=== PATIENT | female | born 1950 | race Caucasian/White ===

== ENCOUNTER 2019-08-26 11:00 | Inpatient (IN) | payer MEDICARE, BC ==
--- NOTE | 2019-08-26 12:18 | EDM.PDOC ---
ED HPI GENERAL MEDICAL PROBLEM - General Chief Complaint: General Stated Complaint: FEVER?? Time Seen by Provider: 08/26/19 11:30 Source of Information: Reports: Patient History Limitations: Reports: No Limitations - History of Present Illness INITIAL COMMENTS - FREE TEXT/NARRATIVE: 69-year-old female presents emergency room with complaints of fevers off and on over the last 2 days. She states that her tympanic cat temp was 103 earlier today and 102 yesterday. She has been taking Tylenol which seems to be helpful. She denies any chills, cough, shortness of breath, chest pain, abdominal pain, back pain and does feel tired. She is on her second round of chemotherapy for lung cancer. She called her oncologist and was recommended that she come to the ER to be checked out. Her current temp she is afebrile at 95.7. Lab workup including a chest x-ray are ordered Onset: Gradual Onset Date: 08/25/19 Duration: Day(s):, Waxing/Waning Location: Reports: Generalized Severity: Mild Improves with: Reports: Medication (Tylenol) Worsens with: Reports: None Associated Symptoms: Reports: Fever/Chills (Fever no chills), Malaise. 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: Reports: Acetaminophen - Related Data Allergies Allergy/AdvReac Type Severity Reaction Status Date / Time azithromycin Allergy Anaphylactic Verified 08/26/19 11:09 Shock Home Meds: Home Meds Anoro 1 puff INH DAILY 08/26/19 [History] Ondansetron [Zofran] 8 mg PO Q4H PRN 08/26/19 [History] Oxycod/Apap 1 tab PO Q4H PRN 08/26/19 [History] Prochlorperazine [Compazine] 10 mg PO Q6H PRN 08/26/19 [History] Social & Family History - Tobacco Use Smoking Status *Q: Former Smoker Used Tobacco, but Quit: Yes Month/Year Tobacco Last Used: quit 2 months ago - Caffeine Use Caffeine Use: Reports: None - Recreational Drug Use Recreational Drug Use: No - Living Situation & Occupation Living situation: Reports: Occupation: Employed ED ROS GENERAL - Review of Systems Review Of Systems: See Below Constitutional: Reports: Fever, Fatigue. Denies: Chills, Night Sweats, Diaphoresis HEENT: Reports: No Symptoms Respiratory: Denies: Shortness of Breath, Cough, Sputum Cardiovascular: Denies: Chest Pain, Blood Pressure Problem, Dyspnea on Exertion , Lightheadedness, Palpitations Endocrine: Reports: No Symptoms GI/Abdominal: Denies: Abdominal Pain, Nausea, Vomiting : Reports: No Symptoms Musculoskeletal: Reports: No Symptoms Skin: Reports: No Symptoms ED EXAM, GENERAL - Physical Exam Exam: See Below Exam Limited By: No Limitations General Appearance: Alert, WD/WN, No Apparent Distress Eye Exam: Bilateral Eye: EOMI, Other (Pupils are 2 mm and symmetric) Ears: Hearing Grossly Normal Nose: Normal Inspection Throat/Mouth: Normal Inspection, Normal Voice, No Airway Compromise Head: Atraumatic, Normocephalic Neck: Normal Inspection, Supple, Non-Tender, Full Range of Motion Respiratory/Chest: No Respiratory Distress, Lungs Clear, Normal Breath Sounds Cardiovascular: Regular Rate, Rhythm GI/Abdominal: Normal Bowel Sounds Back Exam: Normal Inspection Extremities: Normal Inspection, No Pedal Edema Neurological: Alert, Oriented, No Motor/Sensory Deficits Psychiatric: Normal Affect, Normal Mood Skin Exam: Warm, Dry, Intact Course - Vital Signs Last Recorded V/S: Last Vital Signs Temp 97.3 F 08/26/19 12:00 Pulse 102 H 08/26/19 11:04 Resp 20 08/26/19 11:04 BP 106/60 08/26/19 11:04 Pulse Ox 95 08/26/19 11:04 - Orders/Labs/Meds Orders: Active Orders 24 hr Category Date Time Status CULTURE BLOOD [BC] Stat Lab 08/26/19 12:54 Ordered CULTURE BLOOD [BC] Stat Lab 08/26/19 12:54 Ordered UA RFX [place] AND CULT IF INDIC [URIN] Stat Lab 08/26/19 12:02 Ordered Cefepime [Maxipime] 2 gm Med 08/26/19 14:00 Ordered Sodium Chloride 0.9% [Normal Saline] 50 ml IV Q8HR Vancomycin 1 gm Med 08/26/19 13:00 Ordered Sodium Chloride 0.9% [Normal Saline] 250 ml IV Q24H Blood Culture x2 Reflex Set [OM.PC] Stat Oth 08/26/19 12:54 Ordered Medication Orders Cefepime HCl 2 gm/ Sodium (Chloride) 50 mls @ 100 mls/hr IV Q8HR [facility]I Vancomycin HCl 1 gm/ Sodium (Chloride) 250 mls @ 167 mls/hr IV Q24H [facility] Labs: Laboratory Tests 08/26/19 08/26/19 08/26/19 Range/Units 11:30 11:55 11:55 WBC 1.14 L* (5.00-10.00) 10^3/uL RBC 3.17 L (3.80-5.50) 10^6/uL Hgb 9.3 L (12.0-16.0) g/dL Hct 27.5 L (37.0-47.0) % MCV 86.8 (82.0-92.0) fL MCH 29.3 (27.0-31.0) pg MCHC 33.8 (32.0-36.0) g/dL RDW 15.1 H (11.5-14.5) % Plt Count 91 L (150-400) 10^3/uL MPV 9.4 (7.4-10.4) fL Immature Gran % (Auto) 0.0 (0.0-5.0) % Neut % (Auto) 19.3 L (50.0-70.0) % Lymph % (Auto) 64.0 H (20.0-40.0) % [place] % (Auto) 14.9 H (2.0-8.0) % Eos % (Auto) 0.9 L (1.0-3.0) % Baso % (Auto) 0.9 (0.0-1.0) % Neut # (Auto) 0.22 L (2.50-7.00) 10^3/uL Lymph # (Auto) 0.73 L (1.00-4.00) 10^3/uL [place] # (Auto) 0.17 (0.10-0.80) 10^3/uL Eos # (Auto) 0.01 L (0.10-0.30) 10^3/uL Baso # (Auto) 0.01 (0.00-0.10) 10^3/uL Immature Gran # (Auto) 0.00 (0.00-0.50) 10^3/uL Sodium 145 (136-145) mmol/L Potassium 3.7 (3.3-5.3) mmol/L Chloride 103 (98-115) mmol/L Carbon Dioxide 25.5 (21.0-32.0) mmol/L Anion Gap 20.2 H (5-15) mmol/L BUN 19 (6-25) mg/dL Creatinine 0.83 (0.51-1.17) mg/dL Est Cr Clr Drug Dosing 54.41 mL/min Estimated GFR (MDRD) > 60 mL/min Glucose 124 H (75 - 99) mg/dL Calcium 8.9 (8.7-10.3) mg/dL Total Bilirubin 0.3 (0.2-1.0) mg/dL AST 37 (15-37) U/L ALT 48 (12-78) U/L Alkaline Phosphatase 220 H (46-116) IU/L Total Protein 7.8 (6.4-8.2) g/dL Albumin 3.13 (3.00-4.80) g/dL Specimen Type Urincc Urine Color Yellow (YELLOW) Urine Appearance Slightly cloudy H (CLEAR) Urine pH 5.5 (5.0-9.0) Ur Specific [place] >= 1.030 (1.005-1.030) Urine Protein 30 H (NEGATIVE) mg/dL Urine Glucose (UA) Negative (NEGATIVE) mg/dL Urine Ketones Negative (NEGATIVE) mg/dL Urine Occult Blood Negative (NEGATIVE) Urine Nitrite Negative (NEGATIVE) Urine Bilirubin Small H (NEGATIVE) Urine Urobilinogen 1.0 (0.2-1.0) E.U./dL Ur Leukocyte Esterase Negative (NEGATIVE) Urine RBC 0-5 (0-5) /HPF Urine WBC 0-5 (0-5) /HPF Ur Epithelial Cells Many H /LPF Urine Bacteria Few (NONE TO FEW) /HPF Meds: Medications Generic Name Dose Route Start Last Admin Trade Name Freq PRN Reason Stop Dose Admin Cefepime HCl 2 gm/ Sodium 50 mls @ 100 mls/hr 08/26/19 14:00 Chloride IV Q8HR CAMI Vancomycin HCl 1 gm/ Sodium 250 mls @ 167 mls/hr 08/26/19 13:00 Chloride IV Q24H [facility]I - Re-Assessments/Exams Free Text/Narrative Re-Assessment/Exam: 08/26/19 12:46 Patient's white count is 1.14 Departure - Departure Time of Disposition: 13:06 Disposition: Admitted As Inpatient 68 Condition: Fair Clinical Impression: Leukopenia due to antineoplastic chemotherapy - Discharge Information Referrals: Adriana Avina MD [Primary Care Provider] - Forms: ED Department Discharge Sepsis Event Note - Evaluation Sepsis Screening Result: No Definite Risk - Focused Exam Vital Signs: Vital Signs Temp Temp Pulse Resp BP Pulse Ox 08/26/19 12:00 97.3 F 08/26/19 11:04 95.1 F L 102 H 20 106/60 95 Date Exam was Performed: 08/26/19 Time Exam was Performed: 13:06 - My Orders Last 24 Hours: My Active Orders 08/26/19 12:02 UA RFX [place] AND CULT IF INDIC [URIN] Stat 08/26/19 12:54 CULTURE BLOOD [BC] Stat CULTURE BLOOD [BC] Stat Blood Culture x2 Reflex Set [OM.PC] Stat 08/26/19 13:00 Vancomycin 1 gm Sodium Chloride 0.9% [Normal Saline] 250 ml IV Q24H 08/26/19 14:00 Cefepime [Maxipime] 2 gm Sodium Chloride 0.9% [Normal Saline] 50 ml IV Q8HR - Assessment/Plan Last 24 Hours: My Active Orders 08/26/19 12:02 UA RFX [place] AND CULT IF INDIC [URIN] Stat 08/26/19 12:54 CULTURE BLOOD [BC] Stat CULTURE BLOOD [BC] Stat Blood Culture x2 Reflex Set [OM.PC] Stat 08/26/19 13:00 Vancomycin 1 gm Sodium Chloride 0.9% [Normal Saline] 250 ml IV Q24H 08/26/19 14:00 Cefepime [Maxipime] 2 gm Sodium Chloride 0.9% [Normal Saline] 50 ml IV Q8HR Assessment:: Leukopenia secondary to chemotherapy Fever Liver cancer with lung metastases Plan: 1. Vancomycin 1 g every 24 hours 2. Cefepime 2 g every 8 hours 3. Blood cultures 2 4. Rapid Covid test 5. Admit to [facility].
[2019-08-26 12:22] LABS: ANION GAP 20.2 mmol/L (5-15); CHLORIDE,CL 103 mmol/L (98-115); SODIUM,NA 145 mmol/L (136-145)
--- NOTE | 2019-08-26 12:29 | CR ---
[id number] RAD/RAD Chest PA or AP 1V EXAM: RAD Chest PA or AP 1V INDICATION: FEVER, LUNG CANCER. COMPARISON: May 2007. DISCUSSION: Right chest wall IJ approach port catheter in place. Tip in the inferior SVC. Cardiomediastinal silhouette is normal in size and contour. No infiltrate, effusion, pneumothorax, or edema. IMPRESSION: Negative for pneumonia or other acute findings in the chest. Narinder Salinas MD 08/26/19 [id number] Thank you for allowing us to participate in the care of your patient.
[2019-08-26] MEDS ORDERED: Lidocaine/Prilocaine 2.5-2.5% Crm 5 GM Tube TOP ONE (13:20)
[2019-08-26] MEDS: Cefepime 2 GM in Sodium Chloride 0.9% 50 ML IV SCH ×2 (14:11→21:28)
--- NOTE | 2019-08-26 15:23 | PCM.HP.2 ---
H&P History of Present Illness - General Date of Service: 08/26/19 Admit Problem/Dx: Admission Diagnosis/Problem Admission Diagnosis/Problem Leukopenia Source of Information: Patient, Provider, RN History Limitations: Reports: No Limitations Lower Back Pain Score (Numeric/FACES): 5 - Related Data Allergies/Adverse Reactions: Allergies Allergy/AdvReac Type Severity Reaction Status Date / Time azithromycin Allergy Anaphylactic Verified 08/26/19 11:09 Shock Home Medications: Home Meds Anoro Ellipta 62.5mcg/25 Mcg 1 puff INH DAILY 08/26/19 [History] Ondansetron [Zofran] 8 mg PO Q4H PRN 08/26/19 [History] Prochlorperazine [Compazine] 10 mg PO Q6H PRN 08/26/19 [History] Sennosides/Docusate Sodium [Senna-Docusate Sodium Tablet] 1 tab PO DAILY [History] oxyCODONE HCl/Acetaminophen [Oxycodone-Acetaminophen 5-325] 1 tab PO Q4H PRN 02/04 [History] polyethylene glycoL 3350 [MiraLAX] 1 packet PO DAILY PRN 08/26/19 [History] Past Medical History Cardiovascular History: Reports: None Respiratory History: Reports: COPD Other Gastrointestinal History: liver metastasis Genitourinary History: Reports: None Musculoskeletal History: Reports: None Neurological History: Reports: None Psychiatric History: Reports: Depression Endocrine/Metabolic History: Reports: None Immunologic History: Reports: Immunosuppression (chemotherapy) Oncologic (Cancer) History: Reports: Cervix (s/p hysterectomy), Lung (SCLC), Metastatic - Past Surgical History Female Surgical History: Reports: Hysterectomy Social & Family History - Family History Respiratory: Reports: Other (See Below) Other Respiratory Family Hisory: Father with lung cancer Oncologic: Reports: Brain, Lung Other Oncologic Family History: brain and lung cancer father - Tobacco Use Smoking Status *Q: Former Smoker Used Tobacco, but Quit: Yes Month/Year Tobacco Last Used: quit 2 months ago - Caffeine Use Caffeine Use: Reports: None - Recreational Drug Use Recreational Drug Use: No - Living Situation & Occupation Living situation: Reports: Occupation: Employed H&P Review of Systems - Review of Systems: Review Of Systems: See Below General: Reports: Chills, Weakness, Decreased Appetite. Denies: Fever, Fatigue , Night Sweats HEENT: Denies: Headaches, Rhinitis, Sinus Congestion, Sore Throat Pulmonary: Denies: Shortness of Breath, Wheezing, Cough, Sputum Cardiovascular: Reports: No Symptoms Gastrointestinal: Reports: Constipation (secondary to opioid therapy. last BM yesterday). Denies: Diarrhea, Nausea, Vomiting Genitourinary: Denies: Dysuria, Frequency, Burning, Pain, Urgency, Incontinence , Hematuria Musculoskeletal: Reports: No Symptoms Skin: Reports: Pallor Psychiatric: Reports: No Symptoms Neurological: Reports: No Symptoms Hematologic/Lymphatic: Denies: Easy Bleeding, Easy Bruising Exam - Exam Exam: See Below - Vital Signs Vital Signs: Last Vital Signs Temp 97.3 F 08/26/19 12:00 Pulse 102 H 08/26/19 11:04 Resp 20 08/26/19 11:04 BP 106/60 08/26/19 11:04 Pulse Ox 95 08/26/19 11:04 Weight: 160 lb - Exam Quality Assessment: Central Line/PICC, DVT Prophylaxis. No: Supplemental Oxygen , Urinary Catheter General: Alert, Oriented HEENT: Conjunctiva Clear Neck: Supple, Trachea Midline. No: JVD Lungs: Clear to Auscultation, Normal Respiratory Effort Cardiovascular: Regular Rate, Regular Rhythm GI/Abdominal Exam: Normal Bowel Sounds, Soft, Other (mild upper abdominal pain with palpation per baseline. ) (Female) Exam: Deferred Extremities: Non-Tender, No Pedal Edema, Pallor Skin: Warm, Dry, Intact Neuro Extensive - Mental Status: Alert, Normal Mood/Affect, Normal Cognition, Memory Intact Psychiatric: Alert, Normal Affect, Normal Mood - Patient Data Lab Results Last 24 hrs: Laboratory Results - last 24 hr 08/26/19 08/26/19 08/26/19 Range/Units 11:30 11:55 11:55 WBC 1.14 L* (5.00-10.00) 10^3/uL RBC 3.17 L (3.80-5.50) 10^6/uL Hgb 9.3 L (12.0-16.0) g/dL Hct 27.5 L (37.0-47.0) % MCV 86.8 (82.0-92.0) fL MCH 29.3 (27.0-31.0) pg MCHC 33.8 (32.0-36.0) g/dL RDW 15.1 H (11.5-14.5) % Plt Count 91 L (150-400) 10^3/uL MPV 9.4 (7.4-10.4) fL Immature Gran % (Auto) 0.0 (0.0-5.0) % Neut % (Auto) 19.3 L (50.0-70.0) % Lymph % (Auto) 64.0 H (20.0-40.0) % [place] % (Auto) 14.9 H (2.0-8.0) % Eos % (Auto) 0.9 L (1.0-3.0) % Baso % (Auto) 0.9 (0.0-1.0) % Neut # (Auto) 0.22 L (2.50-7.00) 10^3/uL Lymph # (Auto) 0.73 L (1.00-4.00) 10^3/uL [place] # (Auto) 0.17 (0.10-0.80) 10^3/uL Eos # (Auto) 0.01 L (0.10-0.30) 10^3/uL Baso # (Auto) 0.01 (0.00-0.10) 10^3/uL Immature Gran # (Auto) 0.00 (0.00-0.50) 10^3/uL Sodium 145 (136-145) mmol/L Potassium 3.7 (3.3-5.3) mmol/L Chloride 103 (98-115) mmol/L Carbon Dioxide 25.5 (21.0-32.0) mmol/L Anion Gap 20.2 H (5-15) mmol/L BUN 19 (6-25) mg/dL Creatinine 0.83 (0.51-1.17) mg/dL Est Cr Clr Drug Dosing 54.41 mL/min Estimated GFR (MDRD) > 60 mL/min Glucose 124 H (75 - 99) mg/dL Uric Acid (2.6-7.2) mg/dL Calcium 8.9 (8.7-10.3) mg/dL Total Bilirubin 0.3 (0.2-1.0) mg/dL AST 37 (15-37) U/L ALT 48 (12-78) U/L Alkaline Phosphatase 220 H (46-116) IU/L Total Protein 7.8 (6.4-8.2) g/dL Albumin 3.13 (3.00-4.80) g/dL Specimen Type Urincc Urine Color Yellow (YELLOW) Urine Appearance Slightly cloudy H (CLEAR) Urine pH 5.5 (5.0-9.0) Ur Specific [place] >= 1.030 (1.005-1.030) Urine Protein 30 H (NEGATIVE) mg/dL Urine Glucose (UA) Negative (NEGATIVE) mg/dL Urine Ketones Negative (NEGATIVE) mg/dL Urine Occult Blood Negative (NEGATIVE) Urine Nitrite Negative (NEGATIVE) Urine Bilirubin Small H (NEGATIVE) Urine Urobilinogen 1.0 (0.2-1.0) E.U./dL Ur Leukocyte Esterase Negative (NEGATIVE) Urine RBC 0-5 (0-5) /HPF Urine WBC 0-5 (0-5) /HPF Ur Epithelial Cells Many H /LPF Urine Bacteria Few (NONE TO FEW) /HPF SARS-CoV-2 RNA (RT-PCR) (NEGATIVE) 08/26/19 08/26/19 Range/Units 11:55 13:30 WBC (5.00-10.00) 10^3/uL RBC (3.80-5.50) 10^6/uL Hgb (12.0-16.0) g/dL Hct (37.0-47.0) % MCV (82.0-92.0) fL MCH (27.0-31.0) pg MCHC (32.0-36.0) g/dL RDW (11.5-14.5) % Plt Count (150-400) 10^3/uL MPV (7.4-10.4) fL Immature Gran % (Auto) (0.0-5.0) % Neut % (Auto) (50.0-70.0) % Lymph % (Auto) (20.0-40.0) % [place] % (Auto) (2.0-8.0) % Eos % (Auto) (1.0-3.0) % Baso % (Auto) (0.0-1.0) % Neut # (Auto) (2.50-7.00) 10^3/uL Lymph # (Auto) (1.00-4.00) 10^3/uL [place] # (Auto) (0.10-0.80) 10^3/uL Eos # (Auto) (0.10-0.30) 10^3/uL Baso # (Auto) (0.00-0.10) 10^3/uL Immature Gran # (Auto) (0.00-0.50) 10^3/uL Sodium (136-145) mmol/L Potassium (3.3-5.3) mmol/L Chloride (98-115) mmol/L Carbon Dioxide (21.0-32.0) mmol/L Anion Gap (5-15) mmol/L BUN (6-25) mg/dL Creatinine (0.51-1.17) mg/dL Est Cr Clr Drug Dosing mL/min Estimated GFR (MDRD) mL/min Glucose (75 - 99) mg/dL Uric Acid 6.0 (2.6-7.2) mg/dL Calcium (8.7-10.3) mg/dL Total Bilirubin (0.2-1.0) mg/dL AST (15-37) U/L ALT (12-78) U/L Alkaline Phosphatase (46-116) IU/L Total Protein (6.4-8.2) g/dL Albumin (3.00-4.80) g/dL Specimen Type Urine Color (YELLOW) Urine Appearance (CLEAR) Urine pH (5.0-9.0) Ur Specific [place] (1.005-1.030) Urine Protein (NEGATIVE) mg/dL Urine Glucose (UA) (NEGATIVE) mg/dL Urine Ketones (NEGATIVE) mg/dL Urine Occult Blood (NEGATIVE) Urine Nitrite (NEGATIVE) Urine Bilirubin (NEGATIVE) Urine Urobilinogen (0.2-1.0) E.U./dL Ur Leukocyte Esterase (NEGATIVE) Urine RBC (0-5) /HPF Urine WBC (0-5) /HPF Ur Epithelial Cells /LPF Urine Bacteria (NONE TO FEW) /HPF SARS-CoV-2 RNA (RT-PCR) Negative (NEGATIVE) Result Diagrams: 08/28/19 08:27 08/28/19 08:27 Sepsis Event Note - Evaluation Sepsis Screening Result: No Definite Risk - Focused Exam Vital Signs: Vital Signs Temp Temp Pulse Resp BP Pulse Ox 08/26/19 12:00 97.3 F 08/26/19 11:04 95.1 F L 102 H 20 106/60 95 Date Exam was Performed: 08/28/19 Time Exam was Performed: 18:48 *Q Meaningful Use (ADM) - VTE *Q VTE Pharmacological Contraindications *Q: Thrombocytopenia - VTE Risk Assess *Q Each Risk Factor Represents 1 Point: Obesity ( BMI > 25 kg/m2), Abnormal Pulmonary Function (COPD) Total Score 1 Point Risk Factors: 2 Each Risk Factor Represents 2 Points: Age 60 - 74 Years, Central venous access, Malignancy (present or previous) Total Score 2 Point Risk Factors: 6 Each Risk Factor Represents 3 Points: None Total Score 3 Point Risk Factors: 0 Each Risk Factor Represents 5 Points: None Total Score 5 Point Risk Factors: 0 Venous Thromboembolism Risk Factor Score *Q: 8 Problem List Initiated/Reviewed/Updated: Yes Orders Last 24hrs: Active Orders 24 hr Category Date Time Status Patient Status [ADT] Routine ADT 08/26/19 13:20 Active Height and Weight [RC] UPON Care 08/26/19 13:20 Active Intake and Output [RC] QSHIFT Care 08/26/19 13:23 Active Pulse Oximetry [RC] PRN Care 08/26/19 13:23 Active Vital Signs [RC] Q4H Care 08/26/19 13:20 Active Regular Diet [DIET] Diet 08/26/19 Dinner Active CULTURE BLOOD [BC] Stat Lab 08/26/19 12:54 Ordered CULTURE BLOOD [BC] Stat Lab 08/26/19 12:54 Ordered LD [REF] Routine Lab 08/26/19 11:55 Received Acetaminophen [Tylenol] Med 08/26/19 13:20 Active 650 mg PO Q4H PRN Cefepime [Maxipime] 2 gm Med 08/26/19 14:00 Active Sodium Chloride 0.9% [Normal Saline] 50 ml IV Q8HR Vancomycin 1 gm Med 08/26/19 13:00 Active Sodium Chloride 0.9% [Normal Saline] 250 ml IV Q24H Blood Culture x2 Reflex Set [OM.PC] Stat Oth 08/26/19 12:54 Ordered Medication Orders Acetaminophen (Tylenol) 650 mg PO Q4H PRN PRN Reason: analgesia/fever Cefepime HCl 2 gm/ Sodium (Chloride) 50 mls @ 100 mls/hr IV Q8HR [facility]I Vancomycin HCl 1 gm/ Sodium (Chloride) 250 mls @ 167 mls/hr IV Q24H [facility] Assessment/Plan Comment:: This is a 69 year old female with a history notable for recently diagnosed 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 Patient presented to the ED at the recommendation of her oncologist due to concerns of fevers on and off for the last 2 days with at home readings of 103 today and 102 yesterday. Patient states she had been feeling more weak at home. She denies any cough, SOB, chest pain, abdominal pain, nausea, vomiting, or diarrhea. she denies any urinary symptoms. Patient had called oncology at [facility] who recommended emergent ER evaluation at the closest ED setting d/t risk of febrile neutropenia. She has been taking tylenol for fevers with benefit. Patient was recently treated for pneumonia on 08/15/19 with levaquin 500mg PO daily x 1 week. ED course: - Vitals: [id number], BP-106/60, O2 95% - Chest x-ray- Negative for pneumonia or other acute finding. Right chest wall IJ approach port catheter in place, tip in the inferior SVC. - CBC- WBC 1.14, absolute neutrophil 0.22, plt count 91, Hgb 9.3. - CMP- normal liver, renal and electrolytes, alk phos 220 - Urinalysis: Negative (negative nitrites, leukocytes, 0-5 RBC, 0-5 WBC, few bacteria) - COVID-19- Negative - Uric Acid- 6.0 Oncology was consulted with suggestive plan: -covid19 testing, chest xray -cbc, cmp, ldh, uric acid, blood culture (+/-urine culture) -urgent administration of iv antibiotics after blood cultures are taken ( cefepime and if she has a central access vancomycin) -can be admitted locally for continuation of iv antibiotics (or can transfer to [place] if needed) -additional work up as deemed necessary Hospitalization problems: # Fever- Neutropenia. no clear infectious etiology at present with chest x-ray negative. UA negative. COVID-19 negative. blood cultures x 2 done and pending. Cefepime 2g IV Q8H and Vancomycin initiated per oncology recommendation. Less likely atezolizumab related but if no improvement and work up is negative, can re-evaluate for medication related adverse events. LDH done per oncology and pending. will add Lactic acid. # Leukopenia, Neutropenia- on chemotherapy. Last WBC on 08/14/19 prior to latest round of chemo was 5.5. ANC 3.6. WBC today 1.14. with ANC 0.22. Neutropenic precautions. Close lab monitoring. # SCLC with metastasis to the liver- Recently diagnosed July 2019. Current tx regimen:Atezolizumab + CARBOplatin + Etoposide (SCLC); day 3 of cycle 2 was on 08/16/2019. Followed by Dr. Whitaker oncology . Continue on Percocet PRN for pain Chronic conditions: # COPD- continue anoro ellipta # Tobacco dependence- 2 months cigarette free. NRT at home with patches. patient declines the need for Nicotine patch therapy. Will continue to monitor. # Constipation- Miralax PRN, Senna-Colace # Depression- not currently managed pharmacologically. managed by her PCP. recent referral to [facility]. # history of cervical cancer- S/P hysterectomy 1997. Hospitalization details: # FEN: Regular diet. Encourage PO intake # PPX: Increased DVT risk- SCDs and encourage ambulation. Lovenox contraindication d/t Platelet count 91,000. # Code status: Code status discussed with patient with daughter on the phone. patient desires to be a Modified code: CPR but NO INTUBATION. # Disposition: Admit to inpatient status. Anticipate eventual discharge to home. close patient monitoring with low threshold for oncology consult and/or transfer if any change in patient status.
[2019-08-26] MEDS ORDERED: Polyethylene Glycol 3350 Powder 17 GM Packet PO PRN (18:00)
[2019-08-26] MEDS ORDERED: Prochlorperazine 5 MG Tab PO PRN (18:00)
[2019-08-26] MEDS ORDERED: Ondansetron 4 MG Tab.DIS PO PRN (18:00)
[2019-08-26] MEDS: Acetaminophen 325 MG Tab PO PRN (18:36)
[2019-08-26] MEDS: Sodium Chloride 0.9% 20 ML SDV FLUSH PRN ×3 (20:00→22:05)
[2019-08-27] MEDS: Sodium Chloride 0.9% 20 ML SDV FLUSH PRN ×4 (06:00→15:34)
[2019-08-27] MEDS: Sodium Chloride 0.9% 250 ML IV SCH (06:01)
[2019-08-27] MEDS: Cefepime 2 GM in Sodium Chloride 0.9% 50 ML IV SCH ×4 (06:04→21:31)
[2019-08-27 08:09] LABS: ANION GAP 14.3 mmol/L (5-15); CHLORIDE,CL 106 mmol/L (98-115); SODIUM,NA 142 mmol/L (136-145)
[2019-08-27] MEDS ORDERED: Indacaterol/Glycopyrrolate 1 EA Cap.W.Dev Kit of 6 IH SCH (09:00)
[2019-08-27] MEDS: ANORO ELLIPTA INH SCH (09:28)
--- NOTE | 2019-08-27 10:32 | PCM.PN ---
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 No overnight concerns. Afebrile overnight. Denies chest pain, shortness of breath or pain. - Review of Systems General: Denies: Fever, Weakness, Chills HEENT: Denies: Headaches, Sinus Congestion, Sore Throat Pulmonary: Reports: Cough (non productive). Denies: Shortness of Breath, Sputum Cardiovascular: Denies: Chest Pain, Palpitations, Edema Gastrointestinal: Denies: Abdominal Pain, Constipation, Diarrhea, Nausea Genitourinary: Denies: Dysuria Skin: Denies: Rash Neurological: Denies: Headache, Difficulty Walking, Weakness Psychiatric: Denies: Confusion - Patient Data Vitals - Most Recent: Last Vital Signs Temp 37.4 C 08/27/19 06:28 Pulse 97 08/27/19 06:28 Resp 18 08/27/19 06:28 BP 116/63 08/27/19 06:28 Pulse Ox 94 L 08/27/19 06:28 Weight - Most Recent: 72.575 kg I&O - Last 24 Hours: Intake & Output 08/26/19 08/27/19 08/27/19 22:59 06:59 14:59 Intake Total 526 120 Output Total 250 400 Balance 276 -280 Lab Results Last 24 Hours: Laboratory Results - last 24 hr 08/26/19 08/26/19 08/26/19 Range/Units 11:30 11:55 11:55 WBC 1.14 L* (5.00-10.00) 10^3/uL RBC 3.17 L (3.80-5.50) 10^6/uL Hgb 9.3 L (12.0-16.0) g/dL Hct 27.5 L (37.0-47.0) % MCV 86.8 (82.0-92.0) fL MCH 29.3 (27.0-31.0) pg MCHC 33.8 (32.0-36.0) g/dL RDW 15.1 H (11.5-14.5) % Plt Count 91 L (150-400) 10^3/uL MPV 9.4 (7.4-10.4) fL Immature Gran % (Auto) 0.0 (0.0-5.0) % Neut % (Auto) 19.3 L (50.0-70.0) % Lymph % (Auto) 64.0 H (20.0-40.0) % [place] % (Auto) 14.9 H (2.0-8.0) % Eos % (Auto) 0.9 L (1.0-3.0) % Baso % (Auto) 0.9 (0.0-1.0) % Neut # (Auto) 0.22 L (2.50-7.00) 10^3/uL Lymph # (Auto) 0.73 L (1.00-4.00) 10^3/uL [place] # (Auto) 0.17 (0.10-0.80) 10^3/uL Eos # (Auto) 0.01 L (0.10-0.30) 10^3/uL Baso # (Auto) 0.01 (0.00-0.10) 10^3/uL Immature Gran # (Auto) 0.00 (0.00-0.50) 10^3/uL Sodium 145 (136-145) mmol/L Potassium 3.7 (3.3-5.3) mmol/L Chloride 103 (98-115) mmol/L Carbon Dioxide 25.5 (21.0-32.0) mmol/L Anion Gap 20.2 H (5-15) mmol/L BUN 19 (6-25) mg/dL Creatinine 0.83 (0.51-1.17) mg/dL Est Cr Clr Drug Dosing 54.41 mL/min Estimated GFR (MDRD) > 60 mL/min Glucose 124 H (75 - 99) mg/dL Lactic Acid (0.4-2.0) mmol/L Uric Acid (2.6-7.2) mg/dL Calcium 8.9 (8.7-10.3) mg/dL Total Bilirubin 0.3 (0.2-1.0) mg/dL AST 37 (15-37) U/L ALT 48 (12-78) U/L Alkaline Phosphatase 220 H (46-116) IU/L Total Protein 7.8 (6.4-8.2) g/dL Albumin 3.13 (3.00-4.80) g/dL Specimen Type Urincc Urine Color Yellow (YELLOW) Urine Appearance Slightly cloudy H (CLEAR) Urine pH 5.5 (5.0-9.0) Ur Specific [place] >= 1.030 (1.005-1.030) Urine Protein 30 H (NEGATIVE) mg/dL Urine Glucose (UA) Negative (NEGATIVE) mg/dL Urine Ketones Negative (NEGATIVE) mg/dL Urine Occult Blood Negative (NEGATIVE) Urine Nitrite Negative (NEGATIVE) Urine Bilirubin Small H (NEGATIVE) Urine Urobilinogen 1.0 (0.2-1.0) E.U./dL Ur Leukocyte Esterase Negative (NEGATIVE) Urine RBC 0-5 (0-5) /HPF Urine WBC 0-5 (0-5) /HPF Ur Epithelial Cells Many H /LPF Urine Bacteria Few (NONE TO FEW) /HPF SARS-CoV-2 RNA (RT-PCR) (NEGATIVE) 08/26/19 08/26/19 08/27/19 Range/Units 11:55 13:30 07:35 WBC (5.00-10.00) 10^3/uL RBC (3.80-5.50) 10^6/uL Hgb (12.0-16.0) g/dL Hct (37.0-47.0) % MCV (82.0-92.0) fL MCH (27.0-31.0) pg MCHC (32.0-36.0) g/dL RDW (11.5-14.5) % Plt Count (150-400) 10^3/uL MPV (7.4-10.4) fL Immature Gran % (Auto) (0.0-5.0) % Neut % (Auto) (50.0-70.0) % Lymph % (Auto) (20.0-40.0) % [place] % (Auto) (2.0-8.0) % Eos % (Auto) (1.0-3.0) % Baso % (Auto) (0.0-1.0) % Neut # (Auto) (2.50-7.00) 10^3/uL Lymph # (Auto) (1.00-4.00) 10^3/uL [place] # (Auto) (0.10-0.80) 10^3/uL Eos # (Auto) (0.10-0.30) 10^3/uL Baso # (Auto) (0.00-0.10) 10^3/uL Immature Gran # (Auto) (0.00-0.50) 10^3/uL Sodium (136-145) mmol/L Potassium (3.3-5.3) mmol/L Chloride (98-115) mmol/L Carbon Dioxide (21.0-32.0) mmol/L Anion Gap (5-15) mmol/L BUN (6-25) mg/dL Creatinine (0.51-1.17) mg/dL Est Cr Clr Drug Dosing mL/min Estimated GFR (MDRD) mL/min Glucose (75 - 99) mg/dL Lactic Acid 0.9 (0.4-2.0) mmol/L Uric Acid 6.0 (2.6-7.2) mg/dL Calcium (8.7-10.3) mg/dL Total Bilirubin (0.2-1.0) mg/dL AST (15-37) U/L ALT (12-78) U/L Alkaline Phosphatase (46-116) IU/L Total Protein (6.4-8.2) g/dL Albumin (3.00-4.80) g/dL Specimen Type Urine Color (YELLOW) Urine Appearance (CLEAR) Urine pH (5.0-9.0) Ur Specific [place] (1.005-1.030) Urine Protein (NEGATIVE) mg/dL Urine Glucose (UA) (NEGATIVE) mg/dL Urine Ketones (NEGATIVE) mg/dL Urine Occult Blood (NEGATIVE) Urine Nitrite (NEGATIVE) Urine Bilirubin (NEGATIVE) Urine Urobilinogen (0.2-1.0) E.U./dL Ur Leukocyte Esterase (NEGATIVE) Urine RBC (0-5) /HPF Urine WBC (0-5) /HPF Ur Epithelial Cells /LPF Urine Bacteria (NONE TO FEW) /HPF SARS-CoV-2 RNA (RT-PCR) Negative (NEGATIVE) 08/27/19 08/27/19 Range/Units 07:35 07:35 WBC 0.87 L* (5.00-10.00) 10^3/uL RBC 2.70 L (3.80-5.50) 10^6/uL Hgb 7.9 L (12.0-16.0) g/dL Hct 23.7 L (37.0-47.0) % MCV 87.8 (82.0-92.0) fL MCH 29.3 (27.0-31.0) pg MCHC 33.3 (32.0-36.0) g/dL RDW 15.1 H (11.5-14.5) % Plt Count 92 L (150-400) 10^3/uL MPV 9.6 (7.4-10.4) fL Immature Gran % (Auto) 0.0 (0.0-5.0) % Neut % (Auto) 15.0 L (50.0-70.0) % Lymph % (Auto) 62.1 H (20.0-40.0) % [place] % (Auto) 19.5 H (2.0-8.0) % Eos % (Auto) 2.3 (1.0-3.0) % Baso % (Auto) 1.1 H (0.0-1.0) % Neut # (Auto) 0.13 L (2.50-7.00) 10^3/uL Lymph # (Auto) 0.54 L (1.00-4.00) 10^3/uL [place] # (Auto) 0.17 (0.10-0.80) 10^3/uL Eos # (Auto) 0.02 L (0.10-0.30) 10^3/uL Baso # (Auto) 0.01 (0.00-0.10) 10^3/uL Immature Gran # (Auto) 0.00 (0.00-0.50) 10^3/uL Sodium 142 (136-145) mmol/L Potassium 3.7 (3.3-5.3) mmol/L Chloride 106 (98-115) mmol/L Carbon Dioxide 25.4 (21.0-32.0) mmol/L Anion Gap 14.3 (5-15) mmol/L BUN 15 (6-25) mg/dL Creatinine 0.71 (0.51-1.17) mg/dL Est Cr Clr Drug Dosing 63.60 mL/min Estimated GFR (MDRD) > 60 mL/min Glucose 109 H (75 - 99) mg/dL Lactic Acid (0.4-2.0) mmol/L Uric Acid (2.6-7.2) mg/dL Calcium 8.4 L (8.7-10.3) mg/dL Total Bilirubin 0.3 (0.2-1.0) mg/dL AST 32 (15-37) U/L ALT 41 (12-78) U/L Alkaline Phosphatase 191 H (46-116) IU/L Total Protein 6.8 (6.4-8.2) g/dL Albumin 2.55 L (3.00-4.80) g/dL Specimen Type Urine Color (YELLOW) Urine Appearance (CLEAR) Urine pH (5.0-9.0) Ur Specific [place] (1.005-1.030) Urine Protein (NEGATIVE) mg/dL Urine Glucose (UA) (NEGATIVE) mg/dL Urine Ketones (NEGATIVE) mg/dL Urine Occult Blood (NEGATIVE) Urine Nitrite (NEGATIVE) Urine Bilirubin (NEGATIVE) Urine Urobilinogen (0.2-1.0) E.U./dL Ur Leukocyte Esterase (NEGATIVE) Urine RBC (0-5) /HPF Urine WBC (0-5) /HPF Ur Epithelial Cells /LPF Urine Bacteria (NONE TO FEW) /HPF SARS-CoV-2 RNA (RT-PCR) (NEGATIVE) Med Orders - Current: Current Medications Acetaminophen (Tylenol) 650 mg PO Q4H PRN PRN Reason: analgesia/fever Last Admin: 08/26/19 18:36 Dose: 650 mg Cefepime HCl 2 gm/ Sodium (Chloride) 50 mls @ 100 mls/hr IV Q8HR [facility] Last Admin: 08/27/19 06:04 Dose: 100 mls/hr Sodium Chloride (Normal Saline) 250 mls @ 100 mls/hr IV ASDIRECTED [facility] Last Admin: 08/27/19 06:01 Dose: 100 mls/hr Vancomycin HCl 1.5 gm/ Sodium (Chloride) 250 mls @ 166.667 mls/hr IV Q24H [facility] Anoro Ellipta 62.5/ (25 Own Med) 0 each INH DAILY [facility] Last Admin: 08/27/19 09:28 Dose: 1 each Ondansetron HCl (Zofran Odt) 8 mg PO TID PRN PRN Reason: Nausea Oxycodone/Acetaminophen (Percocet 325-5 Mg) 1 tab PO Q6H PRN PRN Reason: Pain Polyethylene Glycol (Miralax) 17 gm PO DAILY PRN PRN Reason: Constipation Prochlorperazine Maleate (Compazine) 10 mg PO Q6H PRN PRN Reason: Nausea Senna/Docusate Sodium (Senna Plus) 2 tab PO BID PRN PRN Reason: Constipation Last Admin: 08/26/19 20:56 Dose: 2 tab Sodium Chloride (Normal Saline) 20 ml FLUSH ASDIRECTED PRN PRN Reason: port flush Last Admin: 08/27/19 07:38 Dose: 20 ml Vancomycin HCl (Pharmacy To Dose - Vancomycin) 1 dose .XX ASDIRECTED [facility] Discontinued Medications Glycopyrrolate/Indacaterol (Utibron Neohaler 27.5-15.6 Mcg) 1 each IH BID [facility] Vancomycin HCl 1 gm/ Sodium (Chloride) 250 mls @ 167 mls/hr IV Q24H [facility] Last Admin: 08/26/19 16:51 Dose: 167 mls/hr Vancomycin HCl 1 gm/ Sodium (Chloride) 250 mls @ 166.667 mls/hr IV Q24H [facility] Last Admin: 08/26/19 19:20 Dose: Not Given Vancomycin HCl 1 gm/ Sodium (Chloride) 250 mls @ 166.667 mls/hr IV Q12H [facility] Last Admin: 08/27/19 07:57 Dose: Not Given Lidocaine/Prilocaine (Emla Crm) 1 gm TOP ONETIME ONE Stop: 08/26/19 13:21 Last Admin: 08/26/19 13:28 Dose: 1 gm Senna/Docusate Sodium (Senna Plus) 1 tab PO DAILY [facility] - Exam Physical Findings Comments:: GENERAL: Well-appearing adult, lying in bed, in no acute distress. HEENT: Normocephalic, atraumatic. Conjunctiva clear. Nares patent without discharge. Mucous membranes moist, posterior pharynx unremarkable. NECK: Supple, no masses. CV: Regular rate and rhythm, no murmurs, rubs, or gallops. 2+ radial pulses. PULMONARY: Normal effort, clear to auscultation bilaterally, no wheezes, rales, or rhonchi. ABDOMEN: Positive bowel sounds, soft, nontender, nondistended. EXTREMITIES: No edema, cyanosis, or clubbing. MUSCULOSKELETAL: Moves all extremities well. NEUROLOGICAL: No obvious deficits. DERMATOLOGIC: No rashes or suspicious lesions in exposed areas. PSYCHIATRIC: Alert, interactive, appropriate affect. 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 Patient presented to the ED at the recommendation of her oncologist due to concerns of fevers on and off for the last 2 days with at home readings of 103 today and 102 yesterday. Patient states she had been feeling more weak at home. She denies any cough, SOB, chest pain, abdominal pain, nausea, vomiting, or diarrhea. she denies any urinary symptoms. Patient had called oncology at [facility] who recommended emergent ER evaluation at the closest ED setting d/t risk of febrile neutropenia. She has been taking tylenol for fevers with benefit. Patient was recently treated for pneumonia on 08/15/19 with levaquin 500mg PO daily x 1 week. ED course: - Vitals: [id number], BP-106/60, O2 95% - Chest x-ray- Negative for pneumonia or other acute finding. Right chest wall IJ approach port catheter in place, tip in the inferior SVC. - CBC- WBC 1.14, absolute neutrophil 0.22, plt count 91, Hgb 9.3. - CMP- normal liver, renal and electrolytes, alk phos 220 - Urinalysis: Negative (negative nitrites, leukocytes, 0-5 RBC, 0-5 WBC, few bacteria) - COVID-19- Negative - Uric Acid- 6.0 Oncology was consulted with suggestive plan 08/26/2019: -covid19 testing, chest xray -cbc, cmp, ldh, uric acid, blood culture (+/-urine culture) -urgent administration of iv antibiotics after blood cultures are taken ( cefepime and if she has a central access vancomycin) -can be admitted locally for continuation of iv antibiotics (or can transfer to [place] if needed) -additional work up as deemed necessary Hospital Course: 08/26/2019: Patient admitted for febrile leukopenia, secondary to chemo on 2019. No clear infectious etiology at present with chest x-ray negative. UA negative. COVID-19 negative. blood cultures x 2 done and pending. Cefepime 2g IV Q8H and Vancomycin Q12 hr initiated per oncology recommendation. Less likely atezolizumab related but if no improvement and work up is negative, can re- evaluate for medication related adverse events. LDH done per oncology and pending. 08/27/2019: No overnight concerns. Afebrile. Worsening of leukopenia WBC 0.87 , Hgb 7.9, plt 92. Dr. Whitaker in oncology updated. Blood cultures pending. Continue vanco and cefepime. If blood cultures come back negative will de- escalate vancomycin. Lactic acid 0.9. Continue current course and update Dr. Whitaker on 08/28/2019 Hospitalization problems: # Fever- resolved: - Continue to monitor - Repeat CBC and BMP in the AM # Leukopenia, Neutropenia- on chemotherapy. Last WBC on 08/14/19 prior to latest round ofchemo was 5.5. ANC 3.6. WBC today 1.14. with ANC 0.22. - Repeat CBC in the AM - Neutropenic precautions. # SCLC with metastasis to the liver- Recently diagnosed July 2019. Current tx regimen:Atezolizumab + CARBOplatin + Etoposide (SCLC); day 3 of cycle 2 was on 08/16/2019. Followed by Dr. Whitaker oncology [facility]. - Percocet PRN for pain - Will plan to update Dr. Whitaker on 08/28/2019 Chronic conditions: # COPD- continue anoro ellipta # Tobacco dependence- 2 months cigarette free. NRT at home with patches. patient declines the need for Nicotine patch therapy. Will continue to monitor. # Constipation- Miralax PRN, Senna-Colace # Depression- not currently managed pharmacologically. managed by her PCP. recent referral to [facility]. # history of cervical cancer- S/P hysterectomy 1997. Hospitalization details: # FEN: Regular diet. Encourage PO intake # PPX: Increased DVT risk- SCDs and encourage ambulation. Lovenox contraindication d/t Platelet count 92,000. # Code status: Code status discussed with patient with daughter on the phone. patient desires to be a Modified code: CPR but NO INTUBATION. # Disposition: Continue inpatient status. Anticipate eventual discharge to home. close patient monitoring with low threshold for oncology consult and/or transfer to [facility]
[2019-08-27] MEDS ORDERED: Sodium Chloride 0.9% 50 ML IV ONE ×2 (16:41)
[2019-08-27] MEDS ORDERED: Iopamidol 755 Mg/ML 100 ML Bottle IV ONE (16:41)
[2019-08-27] MEDS: Sodium Chloride 0.9% 1,000 ML IV SCH (17:45)
--- NOTE | 2019-08-27 18:12 | CT ---
[id number] CT/CT Chest W IV EXAM: CT ANGIOGRAM CHEST INDICATION: Fever, neutropenia, tachypnea and concern for pulmonary embolism. COMPARISON: None. DISCUSSION: There is a mass involving the right paratracheal mediastinum, right hilum and right upper lobe which is most consistent with a primary lung malignancy. The irregular shape somewhat limits measurement, but the mass is approximately 57 x 45 x 50 mm, encases and obstructs the right upper lobe bronchus without current right upper lobe collapse and partially encases the right upper lobe pulmonary vessels. There is a small to moderate hiatus hernia. The mid to distal esophagus has a thick-walled appearance suggestive of esophagitis. Mild to moderate mediastinal adenopathy with sales and merchandising representative right paratracheal node measuring 27 x 17 mm. Mild apical predominant emphysema. No acute infiltrates. A right internal jugular introduced port with tip at the cavoatrial junction. The degree of contrast opacification mildly limits assessment, but no pulmonary emboli are identified. Coronary calcifications are noted. The thoracic aorta is normal in caliber without aneurysm, dissection or other acute findings. In the partially imaged liver there are ill-defined hypodense masses most suggestive of metastatic disease. The largest in the left lobe is approximately 65 mm in diameter and in the right lobe 67 mm. The imaged upper abdomen is otherwise unremarkable. Enlarged lymph nodes are suggested in the upper abdomen in the ulisses hepatis and along the celiac axis with a sales and merchandising representative node measuring about 42 x 28 mm. IMPRESSION: 1. Negative for pulmonary emboli. 2. Mid to distal esophageal wall thickening is most consistent with esophagitis. 3. A mass involving the right upper lobe, the right hilum and the mediastinum is compatible with malignancy. Evidence of metastatic disease to the mediastinal lymph nodes, the liver and possibly ulisses hepatis nodes. Mack Bui MD 08/27/19 0806 Thank you for allowing us to participate in the care of your patient.
[2019-08-28] MEDS: Sodium Chloride 0.9% 1,000 ML IV SCH (00:14)
[2019-08-28] MEDS: Acetaminophen 325 MG Tab PO PRN (02:20)
[2019-08-28] MEDS: Cefepime 2 GM in Sodium Chloride 0.9% 50 ML IV SCH ×3 (06:07→21:39)
[2019-08-28 08:54] LABS: ANION GAP 17.4 mmol/L (5-15); CHLORIDE,CL 106 mmol/L (98-115); SODIUM,NA 143 mmol/L (136-145)
[2019-08-28] MEDS: ANORO ELLIPTA INH SCH (09:02)
--- NOTE | 2019-08-28 10:12 | PCM.PN ---
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 Tachypnea (32) and hypotension (82/51) noted 08/27/2019 afternoon. Temp of 100.4 overnight. Denies chest pain , shortness of breath. Does report non productive cough and mid upper abdominal pain that she describes as "sharp". Feels like bruising. She is having regular bowel movements. Denies blood in stool. She denies heartburn, nausea/vomiting. The pain does not radiate. Functional Status: Reports: Pain Controlled, Tolerating Diet, Ambulating, Urinating - Review of Systems General: Denies: Fever, Weakness, Fatigue, Appetite HEENT: Reports: Headaches (mild). Denies: Sore Throat Pulmonary: Reports: Cough (dry). Denies: Shortness of Breath, Sputum Cardiovascular: Denies: Chest Pain, Edema, Lightheadedness Gastrointestinal: Reports: Abdominal Pain (epigastric area). Denies: Constipation, Decreased Appetite, Diarrhea, Melena, Nausea, Vomiting Genitourinary: Denies: Dysuria, Frequency, Urgency, Incontinence, Hematuria Skin: Denies: Rash Neurological: Denies: Difficulty Walking, Weakness, Change in Speech Psychiatric: Denies: Confusion, Mood Lability - Patient Data Vitals - Most Recent: Last Vital Signs Temp 37.6 C 08/28/19 06:57 Pulse 71 08/28/19 06:57 Resp 20 08/28/19 06:57 BP 93/60 08/28/19 06:57 Pulse Ox 94 L 08/28/19 06:57 Weight - Most Recent: 72.575 kg I&O - Last 24 Hours: Intake & Output 08/27/19 08/28/19 08/28/19 22:59 06:59 14:59 Intake Total 1100 880 Output Total 700 1000 Balance 400 -120 Lab Results Last 24 Hours: Laboratory Results - last 24 hr 08/28/19 08/28/19 Range/Units 08:27 08:27 WBC 0.91 L* (5.00-10.00) 10^3/uL RBC 2.87 L (3.80-5.50) 10^6/uL Hgb 8.3 L (12.0-16.0) g/dL Hct 25.1 L (37.0-47.0) % MCV 87.5 (82.0-92.0) fL MCH 28.9 (27.0-31.0) pg MCHC 33.1 (32.0-36.0) g/dL RDW 15.7 H (11.5-14.5) % Plt Count 129 L (150-400) 10^3/uL MPV 9.5 (7.4-10.4) fL Immature Gran % (Auto) 0.0 (0.0-5.0) % Neut % (Auto) 14.3 L (50.0-70.0) % Lymph % (Auto) 65.9 H (20.0-40.0) % [place] % (Auto) 16.5 H (2.0-8.0) % Eos % (Auto) 2.2 (1.0-3.0) % Baso % (Auto) 1.1 H (0.0-1.0) % Neut # (Auto) 0.13 L (2.50-7.00) 10^3/uL Lymph # (Auto) 0.60 L (1.00-4.00) 10^3/uL [place] # (Auto) 0.15 (0.10-0.80) 10^3/uL Eos # (Auto) 0.02 L (0.10-0.30) 10^3/uL Baso # (Auto) 0.01 (0.00-0.10) 10^3/uL Immature Gran # (Auto) 0.00 (0.00-0.50) 10^3/uL Sodium 143 (136-145) mmol/L Potassium 3.5 (3.3-5.3) mmol/L Chloride 106 (98-115) mmol/L Carbon Dioxide 23.1 (21.0-32.0) mmol/L Anion Gap 17.4 H (5-15) mmol/L BUN 11 (6-25) mg/dL Creatinine 0.64 (0.51-1.17) mg/dL Est Cr Clr Drug Dosing 70.56 mL/min Estimated GFR (MDRD) > 60 mL/min Glucose 122 H (75 - 99) mg/dL Calcium 8.4 L (8.7-10.3) mg/dL Mason Results Last 24 Hours: Microbiology 08/26/19 15:30 Aerobic Blood Culture - Preliminary Blood - Venous - Lab Draw NO GROWTH AFTER 1 DAY Anaerobic Blood Culture - Preliminary NO GROWTH AFTER 1 DAY 08/26/19 15:15 Aerobic Blood Culture - Preliminary Blood - Arm, Left NO GROWTH AFTER 1 DAY Anaerobic Blood Culture - Preliminary NO GROWTH AFTER 1 DAY Med Orders - Current: Current Medications Acetaminophen (Tylenol) 650 mg PO Q4H PRN PRN Reason: analgesia/fever Last Admin: 08/28/19 02:20 Dose: 650 mg Sodium Chloride (Normal Saline) 250 mls @ 100 mls/hr IV ASDIRECTED [facility] Last Admin: 08/27/19 06:01 Dose: 100 mls/hr Cefepime HCl 2 gm/ Sodium (Chloride) 50 mls @ 100 mls/hr IV Q8H [facility] Last Admin: 08/28/19 06:07 Dose: 100 mls/hr Anoro Ellipta 62.5/ (25 Own Med) 0 each INH DAILY [facility] Last Admin: 08/28/19 09:02 Dose: 1 each Omeprazole (Omeprazole) 20 mg PO ACBREAKFAST [facility] Ondansetron HCl (Zofran Odt) 8 mg PO TID PRN PRN Reason: Nausea Oxycodone/Acetaminophen (Percocet 325-5 Mg) 1 tab PO Q6H PRN PRN Reason: Pain Polyethylene Glycol (Miralax) 17 gm PO DAILY PRN PRN Reason: Constipation Prochlorperazine Maleate (Compazine) 10 mg PO Q6H PRN PRN Reason: Nausea Senna/Docusate Sodium (Senna Plus) 2 tab PO BID PRN PRN Reason: Constipation Last Admin: 08/27/19 23:02 Dose: 2 tab Sodium Chloride (Normal Saline) 20 ml FLUSH ASDIRECTED PRN PRN Reason: port flush Last Admin: 08/27/19 15:34 Dose: 20 ml Tbo-Filgrastim (Granix) 480 mcg SUBCUT DAILY [facility] Vancomycin HCl (Pharmacy To Dose - Vancomycin) 1 dose .XX ASDIRECTED [facility] Discontinued Medications Glycopyrrolate/Indacaterol (Utibron Neohaler 27.5-15.6 Mcg) 1 each IH BID [facility] Cefepime HCl 2 gm/ Sodium (Chloride) 50 mls @ 100 mls/hr IV Q8HR [facility] Last Admin: 08/27/19 14:54 Dose: Not Given Vancomycin HCl 1 gm/ Sodium (Chloride) 250 mls @ 167 mls/hr IV Q24H [facility] Last Admin: 08/26/19 16:51 Dose: 167 mls/hr Vancomycin HCl 1 gm/ Sodium (Chloride) 250 mls @ 166.667 mls/hr IV Q24H [facility] Last Admin: 08/26/19 19:20 Dose: Not Given Vancomycin HCl 1 gm/ Sodium (Chloride) 250 mls @ 166.667 mls/hr IV Q12H [facility] Last Admin: 08/27/19 07:57 Dose: Not Given Vancomycin HCl 1.5 gm/ Sodium (Chloride) 250 mls @ 166.667 mls/hr IV Q24H [facility] Last Admin: 08/27/19 12:11 Dose: 166.667 mls/hr Sodium Chloride (Normal Saline) 1,000 mls @ 100 mls/hr IV ASDIRECTED [facility] Last Admin: 08/28/19 00:14 Dose: 100 mls/hr Sodium Chloride (Normal Saline) 50 mls @ 200 mls/min IV ONETIME ONE Stop: 08/27/19 16:42 Last Admin: 08/27/19 17:46 Dose: 200 mls/min Sodium Chloride (Normal Saline) 50 mls @ 200 mls/min IV ONETIME ONE Stop: 08/27/19 16:42 Last Admin: 08/27/19 17:47 Dose: 200 mls/min Iopamidol (Isovue-370 (76%)) 100 ml IV ONETIME ONE Stop: 08/27/19 16:42 Last Admin: 08/27/19 17:46 Dose: 75 ml Lidocaine/Prilocaine (Emla Crm) 1 gm TOP ONETIME ONE Stop: 08/26/19 13:21 Last Admin: 08/26/19 13:28 Dose: 1 gm Senna/Docusate Sodium (Senna Plus) 1 tab PO DAILY [facility] - Exam Physical Findings Comments:: GENERAL: Well-appearing adult, lying in bed, in no acute distress. HEENT: Normocephalic, atraumatic. Conjunctiva clear. Nares patent without discharge. Mucous membranes moist, posterior pharynx unremarkable. NECK: Supple, no masses. CV: Regular rate and rhythm, no murmurs, rubs, or gallops. 2+ radial pulses. PULMONARY: Normal effort, clear to auscultation bilaterally, no wheezes, rales, or rhonchi. ABDOMEN: Positive bowel sounds, soft, tender with palpation over the epigastric area, nondistended. EXTREMITIES: No edema, cyanosis, or clubbing. MUSCULOSKELETAL: Moves all extremities well. NEUROLOGICAL: No obvious deficits. DERMATOLOGIC: No rashes or suspicious lesions in exposed areas. PSYCHIATRIC: Alert, interactive, appropriate affect. Sepsis Event Note - Evaluation Sepsis Screening Result: No Definite Risk - Focused Exam Vital Signs: Vital Signs Temp Temp Pulse Resp BP BP Pulse Ox 08/28/19 06:57 37.6 C 71 20 93/60 94 L 08/28/19 02:20 38.0 C 08/28/19 02:15 38.1 C 87 20 99/64 96 08/27/19 22:57 37.3 C 94 20 108/63 95 Date Exam was Performed: 08/28/19 Time Exam was Performed: 10:30 - Problem List Review Problem List Initiated/Reviewed/Updated: Yes - My Orders Last 24 Hours: My Active Orders 08/27/19 10:29 Communication Order [RC] ROUTINE 08/28/19 07:30 Omeprazole 20 mg PO ACBREAKFAST 08/28/19 10:15 Tbo-Filgrastim [Granix] 480 mcg SUBCUT DAILY 08/29/19 BASIC METABOLIC PANEL,BMP [CHEM] Routine CBC WITH MANUAL DIFF [HEME] Routine - Plan Plan:: This is a 69 year old female with a history notable for recently diagnosed 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 Patient presented to the ED at the recommendation of her oncologist due to concerns of fevers on and off for the last 2 days with at home readings of 103 today and 102 yesterday. Patient states she had been feeling more weak at home. She denies any cough, SOB, chest pain, abdominal pain, nausea, vomiting, or diarrhea. she denies any urinary symptoms. Patient had called oncology at [facility] who recommended emergent ER evaluation at the closest ED setting d/t risk of febrile neutropenia. She has been taking tylenol for fevers with benefit. Patient was recently treated for pneumonia on 08/15/19 with levaquin 500mg PO daily x 1 week. ED course: - Vitals: T96.1-Q243-NR90, BP-106/60, O2 95% - Chest x-ray- Negative for pneumonia or other acute finding. Right chest wall IJ approach port catheter in place, tip in the inferior SVC. - CBC- WBC 1.14, absolute neutrophil 0.22, plt count 91, Hgb 9.3. - CMP- normal liver, renal and electrolytes, alk phos 220 - Urinalysis: Negative (negative nitrites, leukocytes, 0-5 RBC, 0-5 WBC, few bacteria) - COVID-19- Negative - Uric Acid- 6.0 Oncology was consulted with suggestive plan: -covid19 testing, chest xray -cbc, cmp, ldh, uric acid, blood culture (+/-urine culture) -urgent administration of iv antibiotics after blood cultures are taken ( cefepime and if she has a central access vancomycin) -can be admitted locally for continuation of iv antibiotics (or can transfer to [facility] if needed) -additional work up as deemed necessary Hospital Course: 08/26/2019: Patient admitted for febrile leukopenia, secondary to chemo on 2019. No clear infectious etiology at present with chest x-ray negative. UA negative. COVID-19 negative. blood cultures x 2 done and pending. Cefepime 2g IV Q8H and Vancomycin Q12 hr initiated per oncology recommendation. Less likely atezolizumab related but if no improvement and work up is negative, can re- evaluate for medication related adverse events. LDH done per oncology and pending. 08/27/2019: No overnight concerns. Afebrile. Worsening of leukopenia WBC 0.87 , Hgb 7.9, plt 92. Dr. Whitaker in oncology updated. Blood cultures pending. Continue vanco and cefepime. If blood cultures come back negative will de- escalate vancomycin. Lactic acid 0.9. Continue current course and update Dr. Whitaker on 08/28/2019 08/28/2019: Tachypnea (32) and hypotension (82/51) noted 08/27/2019 afternoon. Temp of 100.4 overnight. Mid upper abdominal pain that she describes as "sharp ". Slight improvement in leukopenia WBC 0.91, Hgb 8.3, plt 129. Preliminary blood cultures show no growth. Dr. Whitaker in oncology updated. Start Granix 480mcg daily until three successive days show continued improvement in counts. Stop vancomycin, continue cefepime. Stop IVF and push oral intake. Start omeprazole daily. [facility] still pending. Hospitalization problems: # Fever - Discontinue Vancomycin, continue cefepime - Continue to monitor - Repeat CBC and BMP in the AM # Leukopenia, Neutropenia- on chemotherapy. Last WBC on 08/14/19 prior to latest round of chemo was 5.5. ANC 3.6. WBC today 1.14. with ANC 0.22. - Granix 480mcg daily until three successive days show continued improvement in counts - Repeat CBC in the AM - Neutropenic precautions. # SCLC with metastasis to the liver- Recently diagnosed July 2019. Current tx regimen:Atezolizumab + CARBOplatin + Etoposide (SCLC); day 3 of cycle 2 was on 08/16/2019. Followed by Dr. Whitaker oncology [facility]. - Continue Percocet PRN for pain - Will plan to update Dr. Whitaker on 08/29/2019 # Abdominal pain, epigastrc area - Omeprazole 20mg orally daily - Monitor closely - Consider abdominal CT scan if persists # Hypotension: resolved - Stop IVF, push oral intake - Monitor BP closely # Tachypnea: resolved - Monitor closely Chronic conditions: # COPD- continue anoro ellipta # Tobacco dependence- 2 months cigarette free. NRT at home with patches. patient declines the need for Nicotine patch therapy. Will continue to monitor. # Constipation- Miralax PRN, Senna-Colace # Depression- not currently managed pharmacologically. managed by her PCP. recent referral to [facility]. # history of cervical cancer- S/P hysterectomy 1997. Hospitalization details: # FEN: Regular diet. Encourage PO intake # PPX: Increased DVT risk- SCDs and encourage ambulation. Lovenox contraindication d/t Platelet count ,000. # Code status: Code status discussed with patient with daughter on the phone. patient desires to be a Modified code: CPR but NO INTUBATION. # Disposition: Continue inpatient status. Anticipate eventual discharge to home. close patient monitoring with low threshold for oncology consult and/or transfer to [facility]
[2019-08-28] MEDS ORDERED: Sodium Chloride 0.9% 1,000 ML IV SCH (11:00)
[2019-08-28] MEDS: Omeprazole 20 MG Cap.CR PO SCH (11:37)
[2019-08-28] MEDS: Acetaminophen/oxyCODONE 325-5 MG Tab PO PRN (21:41)
[2019-08-29] MEDS: Acetaminophen/oxyCODONE 325-5 MG Tab PO PRN ×3 (06:04→23:44)
[2019-08-29] MEDS: Cefepime 2 GM in Sodium Chloride 0.9% 50 ML IV SCH ×3 (06:05→22:07)
[2019-08-29] MEDS: Omeprazole 20 MG Cap.CR PO SCH (07:50)
[2019-08-29 08:22] LABS: ANION GAP 18.3 mmol/L (5-15); CHLORIDE,CL 106 mmol/L (98-115); SODIUM,NA 145 mmol/L (136-145)
[2019-08-29] MEDS: ANORO ELLIPTA INH SCH (08:37)
--- NOTE | 2019-08-29 11:21 | PCM.PN ---
- General Info Date of Service: 08/29/19 Functional Status: Reports: Tolerating Diet - Review of Systems General: Reports: Appetite. Denies: Fever, Weakness, Fatigue, Malaise, Chills, Night Sweats HEENT: Reports: No Symptoms Pulmonary: Reports: No Symptoms Cardiovascular: Reports: No Symptoms Gastrointestinal: Reports: No Symptoms Genitourinary: Reports: No Symptoms Musculoskeletal: Reports: No Symptoms Skin: Denies: Rash Neurological: Reports: No Symptoms Psychiatric: Reports: No Symptoms - Patient Data Vitals - Most Recent: Last Vital Signs Temp 98.5 F 08/29/19 06:40 Pulse 83 08/29/19 06:40 Resp 20 08/29/19 06:40 BP 93/60 08/29/19 06:40 Pulse Ox 92 L 08/29/19 06:40 Weight - Most Recent: 160 lb I&O - Last 24 Hours: Intake & Output 08/28/19 08/29/19 08/29/19 22:59 06:59 14:59 Intake Total 720 300 Output Total 650 500 Balance 70 -200 Lab Results Last 24 Hours: Laboratory Results - last 24 hr 08/28/19 08/29/19 08/29/19 Range/Units 08:27 07:40 07:40 WBC 2.03 L (5.00-10.00) 10^3/uL RBC 2.67 L (3.80-5.50) 10^6/uL Hgb 7.8 L (12.0-16.0) g/dL Hct 23.3 L (37.0-47.0) % MCV 87.3 (82.0-92.0) fL MCH 29.2 (27.0-31.0) pg MCHC 33.5 (32.0-36.0) g/dL RDW 15.9 H (11.5-14.5) % RDW Coeff of Benjamin 15.9 Plt Count 155 (150-400) 10^3/uL MPV 10.0 (7.4-10.4) fL Neutrophils % (Manual) 29 L (50-70) % Band Neutrophils % 10 (4-12) % Lymphocytes % (Manual) 50 H (20-40) % Monocytes % (Manual) 9 H (2-8) % Eosinophils % (Manual) 2 (1-3) % Absolute Neutrophils 0.7917 Lymphocytes # (Manual) 1.0150 Monocytes # (Manual) 0.1827 Eosinophils # (Manual) 0.0406 Nucleated RBCs 3 Differential Comment See note Sodium 145 (136-145) mmol/L Potassium 3.7 (3.3-5.3) mmol/L Chloride 106 (98-115) mmol/L Carbon Dioxide 24.4 (21.0-32.0) mmol/L Anion Gap 18.3 H (5-15) mmol/L BUN 11 (6-25) mg/dL Creatinine 0.64 (0.51-1.17) mg/dL Est Cr Clr Drug Dosing 70.56 mL/min Estimated GFR (MDRD) > 60 mL/min Glucose 100 H (75 - 99) mg/dL Calcium 8.4 L (8.7-10.3) mg/dL Lactate Dehydrogenase 250 H (84-212) U/L Mason Results Last 24 Hours: Microbiology 08/26/19 15:30 Aerobic Blood Culture - Preliminary Blood - Venous - Lab Draw NO GROWTH AFTER 2 DAYS Anaerobic Blood Culture - Preliminary NO GROWTH AFTER 2 DAYS 08/26/19 15:15 Aerobic Blood Culture - Preliminary Blood - Arm, Left NO GROWTH AFTER 2 DAYS Anaerobic Blood Culture - Preliminary NO GROWTH AFTER 2 DAYS Med Orders - Current: Current Medications Acetaminophen (Tylenol) 650 mg PO Q4H PRN PRN Reason: analgesia/fever Last Admin: 08/28/19 02:20 Dose: 650 mg Sodium Chloride (Normal Saline) 250 mls @ 100 mls/hr IV ASDIRECTED [facility] Last Admin: 08/27/19 06:01 Dose: 100 mls/hr Cefepime HCl 2 gm/ Sodium (Chloride) 50 mls @ 100 mls/hr IV Q8H [facility] Last Admin: 08/29/19 06:05 Dose: 100 mls/hr Anoro Ellipta 62.5/ (25 Own Med) 0 each INH DAILY [facility] Last Admin: 08/29/19 08:37 Dose: 1 each Omeprazole (Omeprazole) 20 mg PO ACBREAKFAST [facility] Last Admin: 08/29/19 07:50 Dose: 20 mg Ondansetron HCl (Zofran Odt) 8 mg PO TID PRN PRN Reason: Nausea Oxycodone/Acetaminophen (Percocet 325-5 Mg) 1 tab PO Q6H PRN PRN Reason: Pain Last Admin: 08/29/19 06:04 Dose: 1 tab Polyethylene Glycol (Miralax) 17 gm PO DAILY PRN PRN Reason: Constipation Last Admin: 08/28/19 21:40 Dose: 17 gm Prochlorperazine Maleate (Compazine) 10 mg PO Q6H PRN PRN Reason: Nausea Senna/Docusate Sodium (Senna Plus) 2 tab PO BID PRN PRN Reason: Constipation Last Admin: 08/28/19 21:40 Dose: 2 tab Sodium Chloride (Normal Saline) 20 ml FLUSH ASDIRECTED PRN PRN Reason: port flush Last Admin: 08/27/19 15:34 Dose: 20 ml Tbo-Filgrastim (Granix) 480 mcg SUBCUT DAILY@1230 [facility] Last Admin: 08/28/19 13:15 Dose: 480 mcg Discontinued Medications Glycopyrrolate/Indacaterol (Utibron Neohaler 27.5-15.6 Mcg) 1 each IH BID [facility] Cefepime HCl 2 gm/ Sodium (Chloride) 50 mls @ 100 mls/hr IV Q8HR [facility] Last Admin: 08/27/19 14:54 Dose: Not Given Vancomycin HCl 1 gm/ Sodium (Chloride) 250 mls @ 167 mls/hr IV Q24H [facility] Last Admin: 08/26/19 16:51 Dose: 167 mls/hr Vancomycin HCl 1 gm/ Sodium (Chloride) 250 mls @ 166.667 mls/hr IV Q24H [facility] Last Admin: 08/26/19 19:20 Dose: Not Given Vancomycin HCl 1 gm/ Sodium (Chloride) 250 mls @ 166.667 mls/hr IV Q12H [facility] Last Admin: 08/27/19 07:57 Dose: Not Given Vancomycin HCl 1.5 gm/ Sodium (Chloride) 250 mls @ 166.667 mls/hr IV Q24H [facility] Last Admin: 08/27/19 12:11 Dose: 166.667 mls/hr Sodium Chloride (Normal Saline) 1,000 mls @ 100 mls/hr IV ASDIRECTED [facility] Last Admin: 08/28/19 00:14 Dose: 100 mls/hr Sodium Chloride (Normal Saline) 50 mls @ 200 mls/min IV ONETIME ONE Stop: 08/27/19 16:42 Last Admin: 08/27/19 17:46 Dose: 200 mls/min Sodium Chloride (Normal Saline) 50 mls @ 200 mls/min IV ONETIME ONE Stop: 08/27/19 16:42 Last Admin: 08/27/19 17:47 Dose: 200 mls/min Sodium Chloride (Normal Saline) 1,000 mls @ 100 mls/hr IV ASDIRECTED [facility] Iopamidol (Isovue-370 (76%)) 100 ml IV ONETIME ONE Stop: 08/27/19 16:42 Last Admin: 08/27/19 17:46 Dose: 75 ml Lidocaine/Prilocaine (Emla Crm) 1 gm TOP ONETIME ONE Stop: 08/26/19 13:21 Last Admin: 08/26/19 13:28 Dose: 1 gm Senna/Docusate Sodium (Senna Plus) 1 tab PO DAILY [facility] - Exam Quality Assessment: No: Supplemental Oxygen General: Alert, Oriented, Cooperative Neck: Supple Lungs: Clear to Auscultation, Normal Respiratory Effort Cardiovascular: Regular Rate, Regular Rhythm GI/Abdominal Exam: Soft. No: Distended (Female) Exam: Deferred Back Exam: No: CVA Tenderness (L), CVA Tenderness (R) Extremities: No Pedal Edema Skin: Dry, Other (Inspected port site, will need to redress however no redness or signs of infection). 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 Patient presented to the ED at the recommendation of her oncologist due to concerns of fevers on and off for the last 2 days with at home readings of 103 today and 102 yesterday. Patient states she had been feeling more weak at home. She denies any cough, SOB, chest pain, abdominal pain, nausea, vomiting, or diarrhea. she denies any urinary symptoms. Patient had called oncology at [facility] who recommended emergent ER evaluation at the closest ED setting d/t risk of febrile neutropenia. She has been taking tylenol for fevers with benefit. Patient was recently treated for pneumonia on 08/15/19 with levaquin 500mg PO daily x 1 week. ED course: - Vitals: T96.1-A863-OC51, BP-106/60, O2 95% - Chest x-ray- Negative for pneumonia or other acute finding. Right chest wall IJ approach port catheter in place, tip in the inferior SVC. - CBC- WBC 1.14, absolute neutrophil 0.22, plt count 91, Hgb 9.3. - CMP- normal liver, renal and electrolytes, alk phos 220 - Urinalysis: Negative (negative nitrites, leukocytes, 0-5 RBC, 0-5 WBC, few bacteria) - COVID-19- Negative - Uric Acid- 6.0 Oncology was consulted with suggestive plan: -covid19 testing, chest xray -cbc, cmp, ldh, uric acid, blood culture (+/-urine culture) -urgent administration of iv antibiotics after blood cultures are taken ( cefepime and if she has a central access vancomycin) -can be admitted locally for continuation of iv antibiotics (or can transfer to [facility] if needed) -additional work up as deemed necessary Hospital Course: 08/26/2019: Patient admitted for febrile leukopenia, secondary to chemo on 2019. No clear infectious etiology at present with chest x-ray negative. UA negative. COVID-19 negative. blood cultures x 2 done and pending. Cefepime 2g IV Q8H and Vancomycin Q12 hr initiated per oncology recommendation. Less likely atezolizumab related but if no improvement and work up is negative, can re- evaluate for medication related adverse events. LDH done per oncology and pending. 08/27/2019: No overnight concerns. Afebrile. Worsening of leukopenia WBC 0.87 , Hgb 7.9, plt 92. Dr. Whitaker in oncology updated. Blood cultures pending. Continue vanco and cefepime. If blood cultures come back negative will de- escalate vancomycin. Lactic acid 0.9. Continue current course and update Dr. Whitaker on 08/28/2019 08/28/2019: Tachypnea (32) and hypotension (82/51) noted 08/27/2019 afternoon. Temp of 100.4 overnight. Mid upper abdominal pain that she describes as "sharp ". Slight improvement in leukopenia WBC 0.91, Hgb 8.3, plt 129. Preliminary blood cultures show no growth. Dr. Whitaker in oncology updated. Start Granix 480mcg daily until three successive days show continued improvement in counts. Stop vancomycin, continue cefepime. Stop IVF and push oral intake. Start omeprazole daily. LDH high at 250. 08/28: No overnight calls or concerns from on-call provider. Patient feels very well today, T-max past 24 hours 100.2. LDH returned high at 250, WBC improved with Granix, she continues with beta-lactam cefepime, blood cultures no growth after 2 days, inspected port site and will need new dressing as this was open to air and drg was peeling up, no signs of infection, Hospitalization problems: # Fever, improved - continue cefepime - Continue to monitor - Repeat CBC am, # Leukopenia, Neutropenia- on chemotherapy. Last WBC on 08/14/19 prior to latest round of chemo was 5.5. ANC 3.6. WBC today 1.14. with ANC 0.22. - Granix 480mcg daily until three successive days show continued improvement in counts - Repeat CBC in the AM - Neutropenic precautions. # SCLC with metastasis to the liver- Recently diagnosed July 2019. Current tx regimen:Atezolizumab + CARBOplatin + Etoposide (SCLC); day 3 of cycle 2 was on 08/16/2019. Followed by Dr. Whitaker oncology [facility]. - Continue Percocet PRN for pain - Will plan to update Dr. Whitaker on 08/29/2019 # Abdominal pain, epigastrc area, improved - Omeprazole 20mg orally daily - Monitor closely - Hold off abdominal CT # Hypotension: not far below baselin - PO push oral intake - Monitor BP closely # Tachypnea: resolved - Monitor closely Chronic conditions: # COPD- continue anoro ellipta # Tobacco dependence- 2 months cigarette free. NRT at home with patches. patient declines the need for Nicotine patch therapy. Will continue to monitor. # Constipation- Miralax PRN, Senna-Colace # Depression- not currently managed pharmacologically. managed by her PCP. recent referral to [facility]. # history of cervical cancer- S/P hysterectomy 1997. Hospitalization details: # FEN: Regular diet. Encourage PO intake # PPX: Increased DVT risk- SCDs and encourage ambulation. PLT improved however will hold Lovenox if ambulatory. # Code status: Code status discussed with patient with daughter on the phone from admitting provider: desires to be a Modified code: CPR but NO INTUBATION. # Disposition: Continue inpatient status. She will receive her Granix today and her cefepime, anticipate discharge in a.m.
[2019-08-29] MEDS: Sodium Chloride 0.9% 20 ML SDV FLUSH PRN ×4 (14:05→22:50)
[2019-08-29] MEDS: Sodium Chloride 0.9% 250 ML IV SCH (22:03)
[2019-08-30] MEDS: Sodium Chloride 0.9% 20 ML SDV FLUSH PRN ×2 (06:28→12:37)
[2019-08-30] MEDS: Cefepime 2 GM in Sodium Chloride 0.9% 50 ML IV SCH (06:28)
[2019-08-30] MEDS: Omeprazole 20 MG Cap.CR PO SCH (06:29)
[2019-08-30] MEDS: ANORO ELLIPTA INH SCH (08:18)
--- NOTE | 2019-08-30 11:54 | PCM.DCSUM1 ---
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 Whitaker, medical oncology, [facility] Procedures: None Hospital course: 69 year old female with a history notable for recently diagnosed extensive stage IV small cell lung caner and COPD who presented to the ED at the recommendation of her oncologist due to concerns of fevers on and off for the prior 2 days with at home readings of 103 on the day of admission and 102 the day prior. Denied any other specific symptoms other than malaise. Her last round of chemotherapy was on 08/14/19 when WBC was 5.5 with ANC 3.6. Patient had been recently treated for pneumonia on 08/15/19 with levofloxacin 500mg PO daily x 1 week. Notable ED findings included WBC 1.14 with ANC .22, hemoglobin 9.3, and platelets 91. CMP, UA, CXR, and COVID-19 testing normal or unremarkable. Blood cultures drawn. Oncology was consulted and recommended admission for IV cefepime /vancomycin and monitoring. On 08/27/19, had initial worsening of leukopenia to 0.87. Later that afternoon, had an episode of worsening hypotension and tachypnea for which CT chest with contrast performed showing no PE or other acute abnormality. On 08/28/19, had slight improvement in leukopenia to 0.91. On 08/28/19, blood cultures were no growth x2 days; Dr. Whitaker was again updated and recommended discontinuation of vancomycin along with initiation of Granix 480mcg daily until three successive days show continued improvement in WBC. Last fever on 08/27 at 0500 of 38.1C. Had further improvement in WBC to 4.62 on day of discharge s/p 5 days of cefepime, 2 days of vancomycin, and 3 days of Granix 480mcg. Discharge and follow-up recommendations: - Discharge to home - New medications at discharge: None - Follow-up with Dr. Whitaker at already scheduled appointment on 09/04/19 - Discharge Data Discharge Date: 08/30/19 Discharge Disposition: Home, Self-Care 01 Condition: Good - Referral to Home Health Primary Care Physician: Yohana Walter NP - Patient Instructions Diet: Usual Diet as Tolerated Activity: As Tolerated Notify Provider of: Fever, Increased Pain, Nausea and/or Vomiting - Discharge Plan *PRESCRIPTION DRUG MONITORING PROGRAM REVIEWED*: Not Applicable *COPY OF PRESCRIPTION DRUG MONITORING REPORT IN PATIENT CHAS: Not Applicable Home Medications: Home Meds Anoro Ellipta 62.5mcg/25 Mcg 1 puff INH DAILY 08/26/19 [History] Ondansetron [Zofran] 8 mg PO Q4H PRN 08/26/19 [History] Prochlorperazine [Compazine] 10 mg PO Q6H PRN 08/26/19 [History] Sennosides/Docusate Sodium [Senna-Docusate Sodium Tablet] 1 tab PO DAILY [History] oxyCODONE HCl/Acetaminophen [Oxycodone-Acetaminophen 5-325] 1 tab PO Q4H PRN 02/04 [History] polyethylene glycoL 3350 [MiraLAX] 1 packet PO DAILY PRN 08/26/19 [History] Referrals: Maryana Whitaker MD [Ordering Only Provider] - 09/04/19 (as already scheduled) - Discharge Summary/Plan Comment DC Time >30 min.: Yes - General Info Date of Service: 08/30/19 Subjective Update: Ms. Handy is feeling well without complaints this morning. Tolerating diet fairly well, though poor appetite since chemotherapy started. Taking in plenty of fluids. Ambulating without difficulty. Voiding and stooling well. Slept poorly last night due to back pain, but denies back pain this morning and attributes it to the hospital bed. No new concerns. - Patient Data Vitals - Most Recent: Last Vital Signs Temp 36.6 C 08/30/19 11:00 Pulse 89 08/30/19 11:00 Resp 28 H 08/30/19 11:00 BP 87/58 L 08/30/19 11:00 Pulse Ox 94 L 08/30/19 11:00 Weight - Most Recent: 72.575 kg I&O - Last 24 hours: Intake & Output 08/29/19 08/30/19 08/30/19 22:59 06:59 14:59 Intake Total 440 100 Output Total 800 600 Balance -360 -500 Lab Results - Last 24 hrs: Laboratory Results - last 24 hr 08/30/19 Range/Units 07:51 WBC 4.62 L (5.00-10.00) 10^3/uL RBC 2.74 L (3.80-5.50) 10^6/uL Hgb 7.9 L (12.0-16.0) g/dL Hct 23.8 L (37.0-47.0) % MCV 86.9 (82.0-92.0) fL MCH 28.8 (27.0-31.0) pg MCHC 33.2 (32.0-36.0) g/dL RDW 16.1 H (11.5-14.5) % Plt Count 183 (150-400) 10^3/uL MPV 9.7 (7.4-10.4) fL Add Manual Diff Yes Neutrophils % (Manual) 37 L (50-70) % Band Neutrophils % 12 (4-12) % Lymphocytes % (Manual) 39 (20-40) % Monocytes % (Manual) 10 H (2-8) % Eosinophils % (Manual) 1 (1-3) % Basophils % (Manual) 1 (0-1) % Absolute Neutrophils 2.2638 Lymphocytes # (Manual) 1.8018 Monocytes # (Manual) 0.4620 Eosinophils # (Manual) 0.0462 Basophils # (Manual) 0.0462 Nucleated RBCs 2 Ovalocytes Occasional Schistocytes Occasional [place] Results - Last 24 hrs: Microbiology 08/26/19 15:30 Aerobic Blood Culture - Preliminary Blood - Venous - Lab Draw NO GROWTH AFTER 3 DAYS Anaerobic Blood Culture - Preliminary NO GROWTH AFTER 3 DAYS 08/26/19 15:15 Aerobic Blood Culture - Preliminary Blood - Arm, Left NO GROWTH AFTER 3 DAYS Anaerobic Blood Culture - Preliminary NO GROWTH AFTER 3 DAYS Med Orders - Current: Current Medications Acetaminophen (Tylenol) 650 mg PO Q4H PRN PRN Reason: analgesia/fever Last Admin: 08/28/19 02:20 Dose: 650 mg Heparin Sodium (Porcine) (Heparin Lock Flush 100 Units/Ml) 500 units FLUSH ONETIME [facility] Sodium Chloride (Normal Saline) 250 mls @ 100 mls/hr IV ASDIRECTED [facility] Last Admin: 08/29/19 22:03 Dose: 100 mls/hr Cefepime HCl 2 gm/ Sodium (Chloride) 50 mls @ 100 mls/hr IV Q8H [facility] Last Admin: 08/30/19 06:28 Dose: 100 mls/hr Anoro Ellipta 62.5/ (25 Own Med) 0 each INH DAILY [facility] Last Admin: 08/30/19 08:18 Dose: 1 each Omeprazole (Omeprazole) 20 mg PO ACBREAKFAST [facility] Last Admin: 08/30/19 06:29 Dose: 20 mg Ondansetron HCl (Zofran Odt) 8 mg PO TID PRN PRN Reason: Nausea Oxycodone/Acetaminophen (Percocet 325-5 Mg) 1 tab PO Q6H PRN PRN Reason: Pain Last Admin: 08/29/19 23:44 Dose: 1 tab Polyethylene Glycol (Miralax) 17 gm PO DAILY PRN PRN Reason: Constipation Last Admin: 08/28/19 21:40 Dose: 17 gm Prochlorperazine Maleate (Compazine) 10 mg PO Q6H PRN PRN Reason: Nausea Senna/Docusate Sodium (Senna Plus) 2 tab PO BID PRN PRN Reason: Constipation Last Admin: 08/29/19 22:00 Dose: 2 tab Sodium Chloride (Normal Saline) 20 ml FLUSH ASDIRECTED PRN PRN Reason: port flush Last Admin: 08/30/19 06:28 Dose: 20 ml Tbo-Filgrastim (Granix) 480 mcg SUBCUT DAILY@1230 [facility] Last Admin: 08/29/19 13:52 Dose: 480 mcg Discontinued Medications Glycopyrrolate/Indacaterol (Utibron Neohaler 27.5-15.6 Mcg) 1 each IH BID [facility] Cefepime HCl 2 gm/ Sodium (Chloride) 50 mls @ 100 mls/hr IV Q8HR [facility] Last Admin: 08/27/19 14:54 Dose: Not Given Vancomycin HCl 1 gm/ Sodium (Chloride) 250 mls @ 167 mls/hr IV Q24H [facility] Last Admin: 08/26/19 16:51 Dose: 167 mls/hr Vancomycin HCl 1 gm/ Sodium (Chloride) 250 mls @ 166.667 mls/hr IV Q24H [facility] Last Admin: 08/26/19 19:20 Dose: Not Given Vancomycin HCl 1 gm/ Sodium (Chloride) 250 mls @ 166.667 mls/hr IV Q12H [facility] Last Admin: 08/27/19 07:57 Dose: Not Given Vancomycin HCl 1.5 gm/ Sodium (Chloride) 250 mls @ 166.667 mls/hr IV Q24H [facility] Last Admin: 08/27/19 12:11 Dose: 166.667 mls/hr Sodium Chloride (Normal Saline) 1,000 mls @ 100 mls/hr IV ASDIRECTED [facility] Last Admin: 08/28/19 00:14 Dose: 100 mls/hr Sodium Chloride (Normal Saline) 50 mls @ 200 mls/min IV ONETIME ONE Stop: 08/27/19 16:42 Last Admin: 08/27/19 17:46 Dose: 200 mls/min Sodium Chloride (Normal Saline) 50 mls @ 200 mls/min IV ONETIME ONE Stop: 08/27/19 16:42 Last Admin: 08/27/19 17:47 Dose: 200 mls/min Sodium Chloride (Normal Saline) 1,000 mls @ 100 mls/hr IV ASDIRECTED [facility] Iopamidol (Isovue-370 (76%)) 100 ml IV ONETIME ONE Stop: 08/27/19 16:42 Last Admin: 08/27/19 17:46 Dose: 75 ml Lidocaine/Prilocaine (Emla Crm) 1 gm TOP ONETIME ONE Stop: 08/26/19 13:21 Last Admin: 08/26/19 13:28 Dose: 1 gm Senna/Docusate Sodium (Senna Plus) 1 tab PO DAILY [facility] - Exam Physical Findings Comments:: GENERAL: Well-appearing elderly female sitting on edge of hospital bed in no acute distress. HEENT: Normocephalic, atraumatic. Conjunctiva clear. Nares patent without discharge. Mucous membranes moist, posterior pharynx unremarkable. NECK: Supple, no masses. CV: Regular rate and rhythm, no murmurs, rubs, or gallops. 2+ radial pulses. PULMONARY: Normal effort, clear to auscultation bilaterally, no wheezes, rales, or rhonchi. ABDOMEN: Positive bowel sounds, soft, nontender, nondistended. EXTREMITIES: No edema, cyanosis, or clubbing. MUSCULOSKELETAL: Moves all extremities well. NEUROLOGICAL: No obvious deficits. DERMATOLOGIC: No rashes or suspicious lesions in exposed areas. PSYCHIATRIC: Alert, interactive, appropriate affect. *Q Meaningful Use (DIS) - VTE *Q VTE Pharmacological Contraindications *Q: Thrombocytopenia
== END 2019-08-30 12:55 | disposition home or self-care (01) | DRG 809 ==
LOC: KA.ED 11:00 → KA.MS 13:20
PROVIDERS: ADMIT Physician Assistant; ATTEND Nurse Practitioner Family
DX: D70.1 Agranulocytosis secondary to cancer chemotherapy (principal); C78.7 Secondary malignant neoplasm of liver and intrahepatic bile duct; C34.90 Malignant neoplasm of unspecified part of unspecified bronchus or lung; K59.00 Constipation, unspecified; R50.81 Fever presenting with conditions classified elsewhere; Z20.828 Contact with and (suspected) exposure to other viral communicable diseases; F32.9 Major depressive disorder, single episode, unspecified; T45.1X5A Adverse effect of antineoplastic and immunosuppressive drugs, initial encounter; J44.9 Chronic obstructive pulmonary disease, unspecified; R10.13 Epigastric pain; F17.211 Nicotine dependence, cigarettes, in remission; I95.9 Hypotension, unspecified; C22.8 Malignant neoplasm of liver, primary, unspecified as to type; C78.00 Secondary malignant neoplasm of unspecified lung; Z87.891 Personal history of nicotine dependence; Z88.1 Allergy status to other antibiotic agents; Z79.899 Other long term (current) drug therapy
CPT/HCPCS: 36415; 71045; 71260; 80048; 80053; 81001; 83605; 83615; 84550; 85007; 85025; 85027; 87040; 94640; 99284; 99284-25; A9270-GY; J0692; J1447; J1642; J3370; J7030; J7050; Q9967; U0002

== ENCOUNTER 2020-09-26 16:22 | Observation (INO) | payer MEDICARE, BC ==
[2020-09-26] MEDS ORDERED: Sodium Chloride 0.9% 1,000 ML IV SCH (16:45)
[2020-09-26] MEDS ORDERED: Sodium Chloride 0.9% 1,000 ML IV ONE (17:22)
--- NOTE | 2020-09-26 17:37 | CT ---
[id number] CT/CT Chest WO IV EXAM: CT ANGIOGRAM CHEST INDICATION: RIGHT-SIDED CHEST PAIN. COMPARISON: August 27, 2019. DISCUSSION: The previously identified right perihilar mass has significantly decreased in size when compared to the prior study and is difficult to adequately measure as it is ill-defined on the current study. No high-grade stenosis or obstruction of the associated airway or vessels. The previously identified mediastinal adenopathy has decreased in size when compared to the prior study. For example a right paratracheal lymph node previously measuring 1.6 cm in short axis now measures 0.7 cm in short axis (series 2 image 37). There are scattered areas of groundglass and consolidative density bilaterally most pronounced within the right upper lobe. There is a small to moderate hiatal hernia. Mild apical predominant emphysema. A right internal jugular introduced port with tip at the cavoatrial junction. In the partially imaged liver there are ill-defined hypodense masses most suggestive of metastatic disease. These appear to have decreased in size when compared to the prior study. IMPRESSION: 1. Overall decreased size of known right perihilar mass. Additionally previously identified mediastinal lymph nodes have decreased in size. 2. Numerous hypodense lesions within the liver consistent with metastatic disease. The largest lesion appears to have decreased in size when compared to the prior study. 3. New areas of groundglass and consolidative density most pronounced within the right upper lobe. Findings are likely infectious/inflammatory in nature. Andrzej Chisholm DO 09/26/20 [id number] Thank you for allowing us to participate in the care of your patient.
[2020-09-26] MEDS: Morphine 2 MG/ML SYRINGE IVPUSH PRN ×2 (17:39→21:44)
[2020-09-26] MEDS ORDERED: Acetaminophen 500 MG Tab PO PRN (19:26)
[2020-09-26] MEDS ORDERED: Ondansetron 4 MG Tab.DIS PO PRN (19:26)
[2020-09-26] MEDS ORDERED: 50% Dextrose in Water 50 ML Syringe IVPUSH PRN (19:29)
[2020-09-26] MEDS ORDERED: Glucagon,Human Recombinant 1 MG Vial IM PRN (19:29)
[2020-09-26] MEDS: Sodium Chloride 0.9% 1,000 ML IV SCH (19:33)
[2020-09-26] MEDS ORDERED: Non-Formulary Medication 1 Each (Melatonin [Melatonin] 1 MG Tablet) PO SCH (21:00)
[2020-09-26] MEDS: Insulin Aspart 100 Units/ML 3 ML Pen SUBCUT SCH (22:26)
[2020-09-26] MEDS: Nystatin Susp 100,000 Unit/ML 5 ML UD Cup PO SCH (22:27)
[2020-09-26] MEDS: guaiFENesin 600 MG Tab.ER PO SCH (22:27)
[2020-09-26] MEDS: Melatonin 3 MG Tab PO PRN (22:29)
[2020-09-26] MEDS: Albuterol/Ipratropium 3.0-0.5 MG/3 ML Neb Soln NEB SCH (22:34)
[2020-09-27] MEDS: Sodium Chloride 0.9% 1,000 ML IV SCH ×2 (02:21→09:07)
[2020-09-27] MEDS: Morphine 2 MG/ML SYRINGE IVPUSH PRN ×7 (03:16→19:25)
[2020-09-27] MEDS: Levothyroxine 50 MCG Tab PO SCH ×2 (05:47→06:33)
[2020-09-27] MEDS: Albuterol/Ipratropium 3.0-0.5 MG/3 ML Neb Soln NEB SCH ×4 (05:47→23:17)
[2020-09-27] MEDS: guaiFENesin 600 MG Tab.ER PO SCH ×2 (08:06→21:13)
[2020-09-27] MEDS: Nystatin Susp 100,000 Unit/ML 5 ML UD Cup PO SCH ×4 (08:06→21:14)
[2020-09-27] MEDS: Docusate Sodium 100 MG Cap PO SCH (08:06)
[2020-09-27] MEDS: Loratadine 10 MG Tab PO SCH (08:06)
[2020-09-27] MEDS: atorvaSTATin 40 MG Tab PO SCH (08:06)
[2020-09-27] MEDS: Aspirin 81 MG Tab.EC PO SCH (08:06)
[2020-09-27 08:52] LABS: ANION GAP 14.1 mmol/L (5-15); CHLORIDE,CL 107 mmol/L (98-107); SODIUM,NA 144 mmol/L (136-145)
[2020-09-27] MEDS: Insulin Aspart 100 Units/ML 3 ML Pen SUBCUT SCH ×4 (09:08→22:16)
[2020-09-27] MEDS: Tiotropium BR/Olodaterol HCL 4 GM Inhalation Spray 2.5mcg/1 dose; 10 doses INH SCH (09:10)
--- NOTE | 2020-09-27 10:36 | PCM.PN ---
- General Info Date of Service: 09/27/20 Functional Status: Reports: Pain Controlled (Patient states pain is much improved to her right upper quadrant into her right shoulder area), Tolerating Diet, Incentive Spirometry. Denies: Ambulating, New Symptoms - Review of Systems General: Denies: Fever HEENT: Reports: No Symptoms Pulmonary: Reports: Pleuritic Chest Pain, Cough (yellow mucous--chronic) Cardiovascular: Reports: Chest Pain. Denies: Orthopnea, PND, Edema Gastrointestinal: Reports: Abdominal Pain (Much improved to her right upper quadrant). Denies: Decreased Appetite, Diarrhea, Nausea, Vomiting Musculoskeletal: Reports: Other (improved pain to her RUQ) Skin: Denies: Cyanosis, Jaundice, Mottled, Pallor, Rash Neurological: Denies: Confusion Psychiatric: Denies: Confusion - Patient Data Vitals - Most Recent: Last Vital Signs Temp 97.5 F 09/27/20 06:39 Pulse 90 09/27/20 06:39 Resp 32 H 09/27/20 06:39 BP 86/54 L 09/27/20 06:39 Pulse Ox 90 L 09/27/20 06:39 Weight - Most Recent: 136 lb 8 oz I&O - Last 24 Hours: Intake & Output 09/26/20 09/27/20 09/27/20 22:59 06:59 14:59 Intake Total 120 2638 Output Total 600 Balance -480 2638 Lab Results Last 24 Hours: Laboratory Results - last 24 hr 09/26/20 09/26/20 09/26/20 Range/Units 16:30 19:43 20:03 WBC (5.00-10.00) 10^3/uL RBC (3.80-5.50) 10^6/uL Hgb (12.0-16.0) g/dL Hct (37.0-47.0) % MCV (82.0-92.0) fL MCH (27.0-31.0) pg MCHC (32.0-36.0) g/dL RDW (11.5-14.5) % Plt Count (150-400) 10^3/uL MPV (7.4-10.4) fL Immature Gran % (Auto) Neut % (Auto) Lymph % (Auto) [place] % (Auto) Eos % (Auto) Baso % (Auto) Neut # (Auto) Lymph # (Auto) [place] # (Auto) Eos # (Auto) Baso # (Auto) Immature Gran # (Auto) Add Manual Diff Neutrophils % (Manual) (50-70) % Lymphocytes % (Manual) (20-40) % Monocytes % (Manual) (2-8) % Platelet Estimate Macrocytosis Ovalocytes Sodium (136-145) mmol/L Potassium (3.5-5.1) mmol/L Chloride (98-107) mmol/L Carbon Dioxide (21.0-32.0) mmol/L Anion Gap (5-15) mmol/L BUN (7-18) mg/dL Creatinine (0.51-1.17) mg/dL Est Cr Clr Drug Dosing mL/min Estimated GFR (MDRD) mL/min Glucose (70-140) mg/dL POC Glucose (70-140) mg/dL Lactic Acid 1.5 (0.4-2.0) mmol/L Calcium (8.7-10.3) mg/dL Total Bilirubin (0.2-1.0) mg/dL AST (15-37) U/L ALT (14-63) U/L Alkaline Phosphatase (46-116) U/L Total Protein (6.4-8.2) g/dL Albumin (3.40-5.00) g/dL Specimen Type Urinvoid Urine Color Yellow (YELLOW) Urine Appearance Cloudy H (CLEAR) Urine pH 5.5 (5.0-9.0) Ur Specific [place] 1.020 (1.005-1.030) Urine Protein Negative (NEGATIVE) mg/dL Urine Glucose (UA) Negative (NEGATIVE) mg/dL Urine Ketones Negative (NEGATIVE) mg/dL Urine Occult Blood Negative (NEGATIVE) Urine Nitrite Positive H (NEGATIVE) Urine Bilirubin Negative (NEGATIVE) Urine Urobilinogen 0.2 (0.2-1.0) E.U./dL Ur Leukocyte Esterase Negative (NEGATIVE) Urine RBC 0-5 (0-5) /HPF Urine WBC 0-5 (0-5) /HPF Ur Epithelial Cells Moderate H /LPF Urine Bacteria Many H (NONE TO FEW) /HPF SARS CoV-2 RNA Rapid ALEJANDRA Negative (NEGATIVE) 09/26/20 09/27/20 09/27/20 Range/Units 22:23 07:15 07:15 WBC 1.45 L* (5.00-10.00) 10^3/uL RBC 2.30 L (3.80-5.50) 10^6/uL Hgb 7.1 L (12.0-16.0) g/dL Hct 22.0 L (37.0-47.0) % MCV 95.7 H D (82.0-92.0) fL MCH 30.9 (27.0-31.0) pg MCHC 32.3 (32.0-36.0) g/dL RDW 17.7 H (11.5-14.5) % Plt Count 58 L (150-400) 10^3/uL MPV 11.3 H (7.4-10.4) fL Immature Gran % (Auto) Siene Maker Neut % (Auto) Siene Maker Lymph % (Auto) Siene Maker [place] % (Auto) Siene Maker Eos % (Auto) Siene Maker Baso % (Auto) Siene Maker Neut # (Auto) Siene Maker Lymph # (Auto) Siene Maker [place] # (Auto) Siene Maker Eos # (Auto) Siene Maker Baso # (Auto) Siene Maker Immature Gran # (Auto) Siene Maker Add Manual Diff Yes Neutrophils % (Manual) 62 (50-70) % Lymphocytes % (Manual) 18 L (20-40) % Monocytes % (Manual) 20 H (2-8) % Platelet Estimate Decreased Macrocytosis Rare Ovalocytes Rare Sodium 144 (136-145) mmol/L Potassium 2.7 L (3.5-5.1) mmol/L Chloride 107 (98-107) mmol/L Carbon Dioxide 25.6 (21.0-32.0) mmol/L Anion Gap 14.1 (5-15) mmol/L BUN 14 (7-18) mg/dL Creatinine 0.77 (0.51-1.17) mg/dL Est Cr Clr Drug Dosing 57.84 mL/min Estimated GFR (MDRD) > 60 mL/min Glucose 106 (70-140) mg/dL POC Glucose 141 H (70-140) mg/dL Lactic Acid (0.4-2.0) mmol/L Calcium 6.9 L D (8.7-10.3) mg/dL Total Bilirubin 0.3 (0.2-1.0) mg/dL AST 33 (15-37) U/L ALT 37 (14-63) U/L Alkaline Phosphatase 249 H (46-116) U/L Total Protein 5.5 L (6.4-8.2) g/dL Albumin 2.36 L (3.40-5.00) g/dL Specimen Type Urine Color (YELLOW) Urine Appearance (CLEAR) Urine pH (5.0-9.0) Ur Specific [place] (1.005-1.030) Urine Protein (NEGATIVE) mg/dL Urine Glucose (UA) (NEGATIVE) mg/dL Urine Ketones (NEGATIVE) mg/dL Urine Occult Blood (NEGATIVE) Urine Nitrite (NEGATIVE) Urine Bilirubin (NEGATIVE) Urine Urobilinogen (0.2-1.0) E.U./dL Ur Leukocyte Esterase (NEGATIVE) Urine RBC (0-5) /HPF Urine WBC (0-5) /HPF Ur Epithelial Cells /LPF Urine Bacteria (NONE TO FEW) /HPF SARS CoV-2 RNA Rapid ALEJANDRA (NEGATIVE) 09/27/20 Range/Units 07:43 WBC (5.00-10.00) 10^3/uL RBC (3.80-5.50) 10^6/uL Hgb (12.0-16.0) g/dL Hct (37.0-47.0) % MCV (82.0-92.0) fL MCH (27.0-31.0) pg MCHC (32.0-36.0) g/dL RDW (11.5-14.5) % Plt Count (150-400) 10^3/uL MPV (7.4-10.4) fL Immature Gran % (Auto) Neut % (Auto) Lymph % (Auto) [place] % (Auto) Eos % (Auto) Baso % (Auto) Neut # (Auto) Lymph # (Auto) [place] # (Auto) Eos # (Auto) Baso # (Auto) Immature Gran # (Auto) Add Manual Diff Neutrophils % (Manual) (50-70) % Lymphocytes % (Manual) (20-40) % Monocytes % (Manual) (2-8) % Platelet Estimate Macrocytosis Ovalocytes Sodium (136-145) mmol/L Potassium (3.5-5.1) mmol/L Chloride (98-107) mmol/L Carbon Dioxide (21.0-32.0) mmol/L Anion Gap (5-15) mmol/L BUN (7-18) mg/dL Creatinine (0.51-1.17) mg/dL Est Cr Clr Drug Dosing mL/min Estimated GFR (MDRD) mL/min Glucose (70-140) mg/dL POC Glucose 99 (70-140) mg/dL Lactic Acid (0.4-2.0) mmol/L Calcium (8.7-10.3) mg/dL Total Bilirubin (0.2-1.0) mg/dL AST (15-37) U/L ALT (14-63) U/L Alkaline Phosphatase (46-116) U/L Total Protein (6.4-8.2) g/dL Albumin (3.40-5.00) g/dL Specimen Type Urine Color (YELLOW) Urine Appearance (CLEAR) Urine pH (5.0-9.0) Ur Specific [place] (1.005-1.030) Urine Protein (NEGATIVE) mg/dL Urine Glucose (UA) (NEGATIVE) mg/dL Urine Ketones (NEGATIVE) mg/dL Urine Occult Blood (NEGATIVE) Urine Nitrite (NEGATIVE) Urine Bilirubin (NEGATIVE) Urine Urobilinogen (0.2-1.0) E.U./dL Ur Leukocyte Esterase (NEGATIVE) Urine RBC (0-5) /HPF Urine WBC (0-5) /HPF Ur Epithelial Cells /LPF Urine Bacteria (NONE TO FEW) /HPF SARS CoV-2 RNA Rapid ALEJANDRA (NEGATIVE) Med Orders - Current: Current Medications Acetaminophen (Acetaminophen 500 Mg Tab) 1,000 mg PO QID PRN PRN Reason: asneeded Albuterol/Ipratropium (Albuterol/Ipratropium 3.0-0.5 Mg/3 Ml Neb Soln) 3 ml NEB Q6HRRT [facility] Last Admin: 09/27/20 05:47 Dose: 3 ml Documented by: Aspirin (Aspirin 81 Mg Tab.Ec) 81 mg PO DAILY [facility] Last Admin: 09/27/20 08:06 Dose: 81 mg Documented by: Atorvastatin Calcium (Atorvastatin 40 Mg Tab) 20 mg PO DAILY [facility] Last Admin: 09/27/20 08:06 Dose: 20 mg Documented by: Dextrose/Water (50% Dextrose In Water 50 Ml Syringe) 50 ml IVPUSH ASDIRECTED PRN PRN Reason: Hypoglycemia Docusate Sodium (Docusate Sodium 100 Mg Cap) 200 mg PO DAILY [facility] Last Admin: 09/27/20 08:06 Dose: 200 mg Documented by: Glucagon (Glucagon,Human Recombinant 1 Mg Vial) 1 mg IM ASDIRECTED PRN PRN Reason: Hypoglycemia Guaifenesin (Guaifenesin 600 Mg Tab.Er) 600 mg PO BID [facility] Last Admin: 09/27/20 08:06 Dose: 600 mg Documented by: Sodium Chloride (Normal Saline) 1,000 mls @ 150 mls/hr IV ASDIRECTED [facility] Last Admin: 09/27/20 09:07 Dose: 150 mls/hr Documented by: Insulin Aspart (Insulin Aspart 100 Units/Ml 3 Ml Pen) 0 unit SUBCUT WITHMEALSANDBED [facility]; Protocol Last Admin: 09/27/20 09:08 Dose: Not Given Documented by: Levothyroxine Sodium (Levothyroxine 50 Mcg Tab) 50 mcg PO ACBREAKFAST [facility] Last Admin: 09/27/20 06:33 Dose: Not Given Documented by: Loratadine (Loratadine 10 Mg Tab) 10 mg PO DAILY [facility] Last Admin: 09/27/20 08:06 Dose: 10 mg Documented by: Melatonin (Melatonin 3 Mg Tab) 3 mg PO BEDTIME PRN PRN Reason: Insomnia Last Admin: 09/26/20 22:29 Dose: 3 mg Documented by: Morphine Sulfate (Morphine 2 Mg/Ml Syringe) 2 mg IVPUSH Q2H PRN PRN Reason: Pain Last Admin: 09/27/20 08:07 Dose: 2 mg Documented by: Nystatin (Nystatin Susp 100,000 Unit/Ml 5 Ml Ud Cup) 2 ml PO QID [facility] Last Admin: 09/27/20 08:06 Dose: 2 ml Documented by: Olanzapine (Olanzapine 5 Mg Tab) 10 mg PO DAILY [facility] Stop: 10/09/20 09:01 Ondansetron HCl (Ondansetron 4 Mg Tab.Dis) 8 mg PO TID PRN PRN Reason: Nausea Discontinued Medications Sodium Chloride (Normal Saline) 1,000 mls @ 999 mls/hr IV .BOLUS [facility] Sodium Chloride (Normal Saline) 1,000 mls @ 999 mls/hr IV BOLUS ONE Stop: 09/26/20 18:22 Last Admin: 09/26/20 17:30 Dose: 999 mls/hr Documented by: Non-Formulary Medication (Melatonin [Melatonin]) 1 mg PO BEDTIME CAROLINE - Exam Quality Assessment: Supplemental Oxygen General: Alert, Oriented, No Acute Distress Lungs: Rhonchi Cardiovascular: Regular Rate, Regular Rhythm GI/Abdominal Exam: Normal Bowel Sounds, Soft, Tender (Right tenderness right upper quadrant). No: Distended (Female) Exam: Deferred Back Exam: No: CVA Tenderness (L), CVA Tenderness (R) Extremities: No Pedal Edema Neurological: Normal Speech, Normal Tone Psy/Mental Status: Alert, Normal Affect, Normal Mood - Patient Data Lab Results Last 24 hrs: Laboratory Results - last 24 hr 09/26/20 09/26/20 09/26/20 Range/Units 16:30 19:43 20:03 WBC (5.00-10.00) 10^3/uL RBC (3.80-5.50) 10^6/uL Hgb (12.0-16.0) g/dL Hct (37.0-47.0) % MCV (82.0-92.0) fL MCH (27.0-31.0) pg MCHC (32.0-36.0) g/dL RDW (11.5-14.5) % Plt Count (150-400) 10^3/uL MPV (7.4-10.4) fL Immature Gran % (Auto) Neut % (Auto) Lymph % (Auto) [place] % (Auto) Eos % (Auto) Baso % (Auto) Neut # (Auto) Lymph # (Auto) [place] # (Auto) Eos # (Auto) Baso # (Auto) Immature Gran # (Auto) Add Manual Diff Neutrophils % (Manual) (50-70) % Lymphocytes % (Manual) (20-40) % Monocytes % (Manual) (2-8) % Platelet Estimate Macrocytosis Ovalocytes Sodium (136-145) mmol/L Potassium (3.5-5.1) mmol/L Chloride (98-107) mmol/L Carbon Dioxide (21.0-32.0) mmol/L Anion Gap (5-15) mmol/L BUN (7-18) mg/dL Creatinine (0.51-1.17) mg/dL Est Cr Clr Drug Dosing mL/min Estimated GFR (MDRD) mL/min Glucose (70-140) mg/dL POC Glucose (70-140) mg/dL Lactic Acid 1.5 (0.4-2.0) mmol/L Calcium (8.7-10.3) mg/dL Total Bilirubin (0.2-1.0) mg/dL AST (15-37) U/L ALT (14-63) U/L Alkaline Phosphatase (46-116) U/L Total Protein (6.4-8.2) g/dL Albumin (3.40-5.00) g/dL Specimen Type Urinvoid Urine Color Yellow (YELLOW) Urine Appearance Cloudy H (CLEAR) Urine pH 5.5 (5.0-9.0) Ur Specific [place] 1.020 (1.005-1.030) Urine Protein Negative (NEGATIVE) mg/dL Urine Glucose (UA) Negative (NEGATIVE) mg/dL Urine Ketones Negative (NEGATIVE) mg/dL Urine Occult Blood Negative (NEGATIVE) Urine Nitrite Positive H (NEGATIVE) Urine Bilirubin Negative (NEGATIVE) Urine Urobilinogen 0.2 (0.2-1.0) E.U./dL Ur Leukocyte Esterase Negative (NEGATIVE) Urine RBC 0-5 (0-5) /HPF Urine WBC 0-5 (0-5) /HPF Ur Epithelial Cells Moderate H /LPF Urine Bacteria Many H (NONE TO FEW) /HPF SARS CoV-2 RNA Rapid ALEJANDRA Negative (NEGATIVE) 09/26/20 09/27/20 09/27/20 Range/Units 22:23 07:15 07:15 WBC 1.45 L* (5.00-10.00) 10^3/uL RBC 2.30 L (3.80-5.50) 10^6/uL Hgb 7.1 L (12.0-16.0) g/dL Hct 22.0 L (37.0-47.0) % MCV 95.7 H D (82.0-92.0) fL MCH 30.9 (27.0-31.0) pg MCHC 32.3 (32.0-36.0) g/dL RDW 17.7 H (11.5-14.5) % Plt Count 58 L (150-400) 10^3/uL MPV 11.3 H (7.4-10.4) fL Immature Gran % (Auto) Siene Maker Neut % (Auto) Siene Maker Lymph % (Auto) Siene Maker [place] % (Auto) Siene Maker Eos % (Auto) Siene Maker Baso % (Auto) Siene Maker Neut # (Auto) Siene Maker Lymph # (Auto) Siene Maker [place] # (Auto) Siene Maker Eos # (Auto) Siene Maker Baso # (Auto) Siene Maker Immature Gran # (Auto) Siene Maker Add Manual Diff Yes Neutrophils % (Manual) 62 (50-70) % Lymphocytes % (Manual) 18 L (20-40) % Monocytes % (Manual) 20 H (2-8) % Platelet Estimate Decreased Macrocytosis Rare Ovalocytes Rare Sodium 144 (136-145) mmol/L Potassium 2.7 L (3.5-5.1) mmol/L Chloride 107 (98-107) mmol/L Carbon Dioxide 25.6 (21.0-32.0) mmol/L Anion Gap 14.1 (5-15) mmol/L BUN 14 (7-18) mg/dL Creatinine 0.77 (0.51-1.17) mg/dL Est Cr Clr Drug Dosing 57.84 mL/min Estimated GFR (MDRD) > 60 mL/min Glucose 106 (70-140) mg/dL POC Glucose 141 H (70-140) mg/dL Lactic Acid (0.4-2.0) mmol/L Calcium 6.9 L D (8.7-10.3) mg/dL Total Bilirubin 0.3 (0.2-1.0) mg/dL AST 33 (15-37) U/L ALT 37 (14-63) U/L Alkaline Phosphatase 249 H (46-116) U/L Total Protein 5.5 L (6.4-8.2) g/dL Albumin 2.36 L (3.40-5.00) g/dL Specimen Type Urine Color (YELLOW) Urine Appearance (CLEAR) Urine pH (5.0-9.0) Ur Specific [place] (1.005-1.030) Urine Protein (NEGATIVE) mg/dL Urine Glucose (UA) (NEGATIVE) mg/dL Urine Ketones (NEGATIVE) mg/dL Urine Occult Blood (NEGATIVE) Urine Nitrite (NEGATIVE) Urine Bilirubin (NEGATIVE) Urine Urobilinogen (0.2-1.0) E.U./dL Ur Leukocyte Esterase (NEGATIVE) Urine RBC (0-5) /HPF Urine WBC (0-5) /HPF Ur Epithelial Cells /LPF Urine Bacteria (NONE TO FEW) /HPF SARS CoV-2 RNA Rapid ALEJANDRA (NEGATIVE) 09/27/20 Range/Units 07:43 WBC (5.00-10.00) 10^3/uL RBC (3.80-5.50) 10^6/uL Hgb (12.0-16.0) g/dL Hct (37.0-47.0) % MCV (82.0-92.0) fL MCH (27.0-31.0) pg MCHC (32.0-36.0) g/dL RDW (11.5-14.5) % Plt Count (150-400) 10^3/uL MPV (7.4-10.4) fL Immature Gran % (Auto) Neut % (Auto) Lymph % (Auto) [place] % (Auto) Eos % (Auto) Baso % (Auto) Neut # (Auto) Lymph # (Auto) [place] # (Auto) Eos # (Auto) Baso # (Auto) Immature Gran # (Auto) Add Manual Diff Neutrophils % (Manual) (50-70) % Lymphocytes % (Manual) (20-40) % Monocytes % (Manual) (2-8) % Platelet Estimate Macrocytosis Ovalocytes Sodium (136-145) mmol/L Potassium (3.5-5.1) mmol/L Chloride (98-107) mmol/L Carbon Dioxide (21.0-32.0) mmol/L Anion Gap (5-15) mmol/L BUN (7-18) mg/dL Creatinine (0.51-1.17) mg/dL Est Cr Clr Drug Dosing mL/min Estimated GFR (MDRD) mL/min Glucose (70-140) mg/dL POC Glucose 99 (70-140) mg/dL Lactic Acid (0.4-2.0) mmol/L Calcium (8.7-10.3) mg/dL Total Bilirubin (0.2-1.0) mg/dL AST (15-37) U/L ALT (14-63) U/L Alkaline Phosphatase (46-116) U/L Total Protein (6.4-8.2) g/dL Albumin (3.40-5.00) g/dL Specimen Type Urine Color (YELLOW) Urine Appearance (CLEAR) Urine pH (5.0-9.0) Ur Specific [place] (1.005-1.030) Urine Protein (NEGATIVE) mg/dL Urine Glucose (UA) (NEGATIVE) mg/dL Urine Ketones (NEGATIVE) mg/dL Urine Occult Blood (NEGATIVE) Urine Nitrite (NEGATIVE) Urine Bilirubin (NEGATIVE) Urine Urobilinogen (0.2-1.0) E.U./dL Ur Leukocyte Esterase (NEGATIVE) Urine RBC (0-5) /HPF Urine WBC (0-5) /HPF Ur Epithelial Cells /LPF Urine Bacteria (NONE TO FEW) /HPF SARS CoV-2 RNA Rapid ALEJANDRA (NEGATIVE) Result Diagrams: 09/27/20 07:15 09/27/20 07:15 Sepsis Event Note - Evaluation Sepsis Screening Result: Sepsis Risk - Focused Exam Vital Signs: Vital Signs Temp Pulse Resp BP Pulse Ox Pulse Ox 09/27/20 06:39 97.5 F 90 32 H 86/54 L 90 L 09/27/20 05:55 82 90 L 09/27/20 02:44 96.7 F L 82 24 H 92/54 L 92 L 09/26/20 22:45 80 95 09/26/20 22:29 97.2 F 86 28 H 95/53 L 92 L - Problem List Review Problem List Initiated/Reviewed/Updated: Yes - My Orders Last 24 Hours: My Active Orders 09/27/20 01:45 Communication Order [RC] - Plan Plan:: History summary Ms Handy is a 70-year-old female that [facility]clinical diagnosis of dehydration, hypotension, right shoulder pain/thoracic region pain worse upon deep inspiration. Patient stated her right shoulder pain began the night before presentation which she contributed to not sleeping in the proper position. 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 For pain patient stated she took Tylenol which did alleviate some. Denies any fevers or chills. [place] clinical work-up CBC, neutropenia, hemoglobin 9.9, platelets 103, BUN 23, creatinine 1.11 and a GFR 49. Electrolytes stable. Alkaline phosphatase 327--patient's baseline CXR: No signs of pneumonia/infiltrate. Infusion port appropriate placement Hospital course 09/27/2020 upon admission patient was hydrated with 1000 cc of isotonic normal saline then maintenance at 150/h. Morphine alleviating pain. Abdominal CT performed demonstrates new appearance of ground-glass RUL--I suspect viral/pneumonitis in nature given clinical history. ANC 574, Hgb; 7.1 Primary hospital problems --Hypotension, slight below baseline I>0 2/2 dehydration, non sepsis --Anemia; hemoglobin 7.1, likely post chemo --Hypokalemia, replete --Dehydration, improving --COPD, Holding Anoro, cont caroline duo nebs Chronic conditions Insomnia, melatonin Tobacco dependency Depression, Olanzapine Hyperlipidemia, statin therapy Steroid-induced diabetes, holding glargine History of pneumonitis Social [place] in [place] independent, son who lives close by and checks in on her about 2- 3 times a day. Disposition/overall plan --Change IV fluids to normal saline with 20 mEq potassium reduce rate to 100 cc/h --Will require at least 60 other milliequivalents IV push piggybacks throughout the day --Up to chair today --Aggressive pulmonary toileting --Hold off on antibiotics --Monitor for any neutropenic fevers --May benefit from Granix, will c/s oncology for consideration --Splint right side upon coughing however encourage cough and deep breathing --Labs in a.m.
[2020-09-27] MEDS ORDERED: Potassium Chloride 20 MEQ in Premix Bag 1 BAG IV ONE ×3 (12:01→20:00)
[2020-09-27] MEDS: NS + KCl 20mEq/L 1,000 ML IV SCH (14:39)
[2020-09-27] MEDS: Melatonin 3 MG Tab PO PRN (21:13)
[2020-09-27] MEDS ORDERED: Bisacodyl 5 MG Tab PO PRN (21:29)
[2020-09-28] MEDS: NS + KCl 20mEq/L 1,000 ML IV SCH (00:52)
[2020-09-28] MEDS: Albuterol/Ipratropium 3.0-0.5 MG/3 ML Neb Soln NEB SCH ×2 (05:28→11:15)
[2020-09-28] MEDS: Levothyroxine 50 MCG Tab PO SCH ×2 (05:28→06:31)
[2020-09-28] MEDS: Insulin Aspart 100 Units/ML 3 ML Pen SUBCUT SCH ×2 (07:36→12:06)
[2020-09-28] MEDS: guaiFENesin 600 MG Tab.ER PO SCH (08:28)
[2020-09-28] MEDS: atorvaSTATin 40 MG Tab PO SCH (08:28)
[2020-09-28] MEDS: Aspirin 81 MG Tab.EC PO SCH (08:28)
[2020-09-28] MEDS: Docusate Sodium 100 MG Cap PO SCH (08:29)
[2020-09-28] MEDS: Loratadine 10 MG Tab PO SCH (08:29)
[2020-09-28] MEDS: Nystatin Susp 100,000 Unit/ML 5 ML UD Cup PO SCH ×2 (08:29→13:31)
[2020-09-28] MEDS: Tiotropium BR/Olodaterol HCL 4 GM Inhalation Spray 2.5mcg/1 dose; 10 doses INH SCH (08:31)
[2020-09-28 09:02] LABS: ANION GAP 16.4 mmol/L (5-15); CHLORIDE,CL 108 mmol/L (98-107); SODIUM,NA 143 mmol/L (136-145)
[2020-09-28] MEDS ORDERED: Sodium Chloride 0.9% 250 ML IV SCH (12:15)
[2020-09-28] MEDS ORDERED: Potassium Bicarbonate 25 MEQ Tab.EFF PO ONE (12:30)
--- NOTE | 2020-10-03 12:57 | PCM.DCSUM1 ---
Discharge Summary - Hospital Course Diagnosis: Stroke: No - Discharge Data Discharge Date: 09/28/20 Discharge Disposition: Home, Self-Care 01 Condition: Serious - Referral to Home Health Primary Care Physician: Calli Mckeon MD - Patient Summary/Data Consults: Consultations 09/26/20 19:22 Consult to Case Management/Prototype Deicer Assembler [CONS] Routine - Patient Instructions Diet: Usual Diet as Tolerated Activity: Cough & Deep Breathe Showering/Bathing: May Shower Notify Provider of: Fever, Increased Pain, Nausea and/or Vomiting Other/Special Instructions: Take plenty of fluids. For any lightheadedness or dizziness. For any fever or worsening cough or change in color or consistency of your mucus - Discharge Plan *PRESCRIPTION DRUG MONITORING PROGRAM REVIEWED*: Not Applicable *COPY OF PRESCRIPTION DRUG MONITORING REPORT IN PATIENT CHAS: Not Applicable Home Medications: Home Meds Anoro Ellipta 62.5mcg/25 Mcg 1 puff INH DAILY 08/26/19 [History] Ascorbate Calcium [Vitamin C] 500 mg PO DAILY 08/15/20 [History] Aspirin [Halfprin] 81 mg PO DAILY 08/15/20 [History] Cholecalciferol (Vitamin D3) [Vitamin D3] 50 mcg PO DAILY 08/15/20 [History] Loratadine [Claritin] 10 mg PO DAILY 08/15/20 [History] Levothyroxine [Synthroid] 50 mcg PO ACBREAKFAST 08/16/20 [History] Melatonin 1 mg PO BEDTIME 08/16/20 [History] guaiFENesin [Mucinex] 600 mg PO BID 08/16/20 [History] Acetaminophen 1,000 mg PO QID PRN 09/26/20 [History] Alc/Diph/Lido/Mag Hydrox/Smc [First-Mouthwash BLM] PO ASDIRECTED 09/26/20 [History] Docusate Sodium 200 mg PO DAILY 09/26/20 [History] Insulin Glargine,Hum.Rec.Anlog [Basaglar Kwikpen U-100] 9 unit SQ BEDTIME 09/26/20 [History] Nystatin 2 ml PO QID 09/26/20 [History] OLANZapine [ZyPREXA] 10 mg PO ASDIRECTED 09/26/20 [History] Ondansetron [Zofran] 8 mg PO TID PRN 09/26/20 [History] Prochlorperazine Maleate [Compazine] 10 mg PO QID PRN 09/26/20 [History] atorvaSTATin Calcium [Lipitor] 20 mg PO DAILY 09/26/20 [History] dexAMETHasone [Dexamethasone] 8 mg PO ASDIRECTED 09/26/20 [History] Referrals: Danna Wiley NP [Nurse Practitioner] - (Call [facility] tomorrow to receive a follow-up appointment early to mid week. ) - Discharge Summary/Plan Comment DC Time >30 min.: Yes Discharge Summary/Plan Comment: Final diagnosis --Hypotension, slight below baseline I>0 2/2 dehydration, non sepsis --Anemia; hemoglobin 7.1, likely post-chemo --Hypokalemia, resolved --Dehydration, resolved History summary Ms Handy is a 70-year-old female that [facility]clinical diagnosis of dehydration, hyp otension, right shoulder pain/thoracic region pain worse upon deep inspiration. Patient stated her right shoulder pain began the night before presentation which she contributed to not sleeping in the proper position. 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 For pain patient stated she took Tylenol which did alleviate some. Denies any fevers or chills. [place] clinical work-up CBC, neutropenia, hemoglobin 9.9, platelets 103, BUN 23, creatinine 1.11 and a GFR 49. Electrolytes stable. Alkaline phosphatase 327--patient's baseline CXR: No signs of pneumonia/infiltrate. Infusion port appropriate placement Hospital course 09/27/2020 upon admission patient was hydrated with 1000 cc of isotonic normal saline then maintenance at 150/h. Morphine alleviating pain. Abdominal CT performed demonstrates new appearance of ground-glass RUL--I suspect viral/pneumonitis in nature given clinical history. ANC 574, Hgb; 7.1. I chose not to give her antibiotics due to the likelihood of no infectious process. She did require significant potassium replacement and she normalized prior to discharge. We provide aggressive pulmonary toileting, she never had any neutropenic fever. At one point I was considering Adan X however her white count did improve. Her blood pressure did improve Disposition Patient felt she could be discharged from [facility] as her blood pressure improved, her hydration improved, and her potassium level improved. Follow-up appointments will be made - General Info Functional Status: Reports: Pain Controlled, Tolerating Diet - Review of Systems General: Denies: Fever, Weakness, Fatigue Pulmonary: Reports: Cough. Denies: Shortness of Breath, Sputum Cardiovascular: Denies: Chest Pain, Lightheadedness Gastrointestinal: Reports: No Symptoms Genitourinary: Reports: No Symptoms Skin: Reports: Pallor - Patient Data Vitals - Most Recent: Last Vital Signs Temp 96.3 F L 09/28/20 11:00 Pulse 84 09/28/20 11:16 Resp 23 H 09/28/20 11:00 BP 97/65 09/28/20 11:00 Pulse Ox 92 L 09/28/20 11:16 Weight - Most Recent: 136 lb 8 oz Med Orders - Current: Current Medications Discontinued Medications Acetaminophen (Acetaminophen 500 Mg Tab) 1,000 mg PO QID PRN PRN Reason: asneeded Last Admin: 09/27/20 21:13 Dose: 1,000 mg Documented by: Albuterol/Ipratropium (Albuterol/Ipratropium 3.0-0.5 Mg/3 Ml Neb Soln) 3 ml NEB Q6HRRT [facility] Last Admin: 09/28/20 11:15 Dose: 3 ml Documented by: Aspirin (Aspirin 81 Mg Tab.Ec) 81 mg PO DAILY [facility] Last Admin: 09/28/20 08:28 Dose: 81 mg Documented by: Atorvastatin Calcium (Atorvastatin 40 Mg Tab) 20 mg PO DAILY [facility] Last Admin: 09/28/20 08:28 Dose: 20 mg Documented by: Bisacodyl (Bisacodyl 5 Mg Tab) 10 mg PO DAILY PRN PRN Reason: Constipation Last Admin: 09/27/20 21:46 Dose: 10 mg Documented by: Dextrose/Water (50% Dextrose In Water 50 Ml Syringe) 50 ml IVPUSH ASDIRECTED PRN PRN Reason: Hypoglycemia Docusate Sodium (Docusate Sodium 100 Mg Cap) 200 mg PO DAILY [facility] Last Admin: 09/28/20 08:29 Dose: 200 mg Documented by: Glucagon (Glucagon,Human Recombinant 1 Mg Vial) 1 mg IM ASDIRECTED PRN PRN Reason: Hypoglycemia Guaifenesin (Guaifenesin 600 Mg Tab.Er) 600 mg PO BID [facility] Last Admin: 09/28/20 08:28 Dose: 600 mg Documented by: Sodium Chloride (Normal Saline) 1,000 mls @ 999 mls/hr IV .BOLUS [facility]I Sodium Chloride (Normal Saline) 1,000 mls @ 999 mls/hr IV BOLUS ONE Stop: 09/26/20 18:22 Last Admin: 09/26/20 17:30 Dose: 999 mls/hr Documented by: Sodium Chloride (Normal Saline) 1,000 mls @ 150 mls/hr IV ASDIRECTED [facility] Last Admin: 09/27/20 09:07 Dose: 150 mls/hr Documented by: Potassium Chloride 20 meq/ (Premix) 100 mls @ 50 mls/hr IV ONETIME ONE Stop: 09/27/20 14:00 Last Admin: 09/27/20 12:33 Dose: 50 mls/hr Documented by: Potassium Chloride 20 meq/ (Premix) 100 mls @ 50 mls/hr IV ONETIME ONE Stop: 09/27/20 16:59 Last Admin: 09/27/20 14:29 Dose: 50 mls/hr Documented by: Potassium Chloride 20 meq/ (Premix) 100 mls @ 50 mls/hr IV ONETIME ONE Stop: 09/27/20 21:59 Last Admin: 09/27/20 19:17 Dose: 50 mls/hr Documented by: Potassium Chloride/Sodium Chloride (Normal Saline With 20 Meq Kcl) 1,000 mls @ 100 mls/hr IV ASDIRECTED [facility] Last Admin: 09/28/20 00:52 Dose: 100 mls/hr Documented by: Sodium Chloride (Normal Saline) 250 mls @ 50 mls/hr IV ASDIRECTED [facility] Insulin Aspart (Insulin Aspart 100 Units/Ml 3 Ml Pen) 0 unit SUBCUT WITHMEALSANDBED [facility]; Protocol Last Admin: 09/28/20 12:06 Dose: Not Given Documented by: Levothyroxine Sodium (Levothyroxine 50 Mcg Tab) 50 mcg PO ACBREAKFAST [facility] Last Admin: 09/28/20 06:31 Dose: Not Given Documented by: Loratadine (Loratadine 10 Mg Tab) 10 mg PO DAILY [facility] Last Admin: 09/28/20 08:29 Dose: 10 mg Documented by: Melatonin (Melatonin 3 Mg Tab) 3 mg PO BEDTIME PRN PRN Reason: Insomnia Last Admin: 09/27/20 21:13 Dose: 3 mg Documented by: Morphine Sulfate (Morphine 2 Mg/Ml Syringe) 2 mg IVPUSH Q2H PRN PRN Reason: Pain Last Admin: 09/27/20 19:25 Dose: 2 mg Documented by: Non-Formulary Medication (Melatonin [Melatonin]) 1 mg PO BEDTIME [facility] Nystatin (Nystatin Susp 100,000 Unit/Ml 5 Ml Ud Cup) 2 ml PO QID [facility] Last Admin: 09/28/20 13:31 Dose: 2 ml Documented by: Olanzapine (Olanzapine 5 Mg Tab) 10 mg PO DAILY [facility] Stop: 10/09/20 09:01 Ondansetron HCl (Ondansetron 4 Mg Tab.Dis) 8 mg PO TID PRN PRN Reason: Nausea Potassium Bicarbonate (Potassium Bicarbonate 25 Meq Tab.Eff) 25 meq PO ONETIME ONE Stop: 09/28/20 12:31 Last Admin: 09/28/20 13:29 Dose: 25 meq Documented by: - Exam General: Reports: Alert, Oriented Neck: Reports: Supple Lungs: Reports: Rhonchi Cardiovascular: Reports: Regular Rate, Regular Rhythm GI/Abdominal Exam: Soft, No Distention Back Exam: Reports: Normal Inspection Skin: Reports: Warm, Dry, Intact
[2020-10-06] MEDS ORDERED: OLANZapine 5 MG Tab PO SCH (09:00)
== END 2020-09-28 15:30 | disposition home or self-care (01) ==
LOC: KA.MS 16:27
PROVIDERS: ADMIT Nurse Practitioner Family; ATTEND Family Medicine
DX: I95.9 Hypotension, unspecified (principal); M25.511 Pain in right shoulder; E86.0 Dehydration; D70.1 Agranulocytosis secondary to cancer chemotherapy; R07.9 Chest pain, unspecified; J44.9 Chronic obstructive pulmonary disease, unspecified; J18.9 Pneumonia, unspecified organism; I48.0 Paroxysmal atrial fibrillation; E78.2 Mixed hyperlipidemia; E09.9 Drug or chemical induced diabetes mellitus without complications; D64.9 Anemia, unspecified; E87.6 Hypokalemia; Z20.822 Contact with and (suspected) exposure to COVID-19; E03.9 Hypothyroidism, unspecified; C76.0 Malignant neoplasm of head, face and neck; C7A.8 Other malignant neuroendocrine tumors; B37.0 Candidal stomatitis; G47.00 Insomnia, unspecified; F17.200 Nicotine dependence, unspecified, uncomplicated; K59.00 Constipation, unspecified; Z79.899 Other long term (current) drug therapy; Z79.890 Hormone replacement therapy; Z79.84 Long term (current) use of oral hypoglycemic drugs; Z88.1 Allergy status to other antibiotic agents; Z91.048 Other nonmedicinal substance allergy status; Z98.890 Other specified postprocedural states
CPT/HCPCS: 36415; 71250; 80048; 80053; 81001; 82947; 83605; 84145; 85025; 87040; 94640; 96374; 96376; A9270; G0378; J1815; J2270; J3480; J7030; U0002; J7620-GY